=== PATIENT | female | born 1980 | race Caucasian/White ===

== ENCOUNTER 2018-05-14 07:41 | Emergency (ER) | payer BC, SELFPAY ==
[2018-05-14 07:42] VITALS: BP 126/64; PULSE 91; RESP 14; TEMP 37.6; O2SAT 100; BMI 23.5
--- NOTE | 2018-05-14 07:55 | EKG12_ITS ---
Test Reason : ILLNESS Blood Pressure : / mmHG Vent. Rate : 093 BPM Atrial Rate : 093 BPM P-R Int : 138 ms QRS Dur : 086 ms QT Int : 382 ms P-R-T Axes : 050 059 034 degrees QTc Int : 474 ms Normal sinus rhythm Normal ECG Confirmed by CHARITY RUIZ, ZACKARY ([id number]), editor continuity and script WES DUMONT ([id number]) on 05/19/2018 2:45:32 PM Referred By: BRYCE Confirmed By:ZACKARY ANSH MD
[2018-05-14] MEDS: 0.9% Normal Saline 1,000 ML 1000 ML IV (08:04)
[2018-05-14 08:13] LABS: Anion Gap 9 (5-15); BUN 12 mg/dL (7-18); Calcium,Total 8.8 mg/dL (8.5-10.1); Chloride 106 mmol/L (98-107); EST Glomerular Filtration Rate 85 mL/min (>60); Est Glom Filt Rate - Afr Amer 103 mL/min (>60); Estimated Creatinine Clearance 91.81 ml/min; Glucose 103 mg/dL (74-106); Potassium 3.8 mmol/L (3.5-5.1); Sodium Level 141 mmol/L (136-145)
[2018-05-14 08:27] LABS: Absolute Lymphocyte Count 0.82 X10^3/ul (0.83-4.51); Absolute Neutrophil Count 6.7 X10^3/uL (2.0-7.7); Basophil# 0.02 X10^3/uL; Basophil% 0.2 % (0-1); Eosinophil# 0.01 X10^3/uL; Eosinophils% 0.1 % (0-5); Hematocrit 36.1 % (37-47); Hemoglobin 12.1 g/dl (12.0-15.0); Lymphocyte # 0.82 X10^3/ul (4.0); Lymphocyte % 10.1 % (19-41); Mean Corp Hgb Conc 33.5 g/gl (32-36); Mean Corpuscular Hgb 32.4 pg (27.0-32.0); Mean Corpuscular Volume 96.8 fL (81-99); Mean Platelet Vol. 10.6 fl (6.2-12.0); Monocyte# 0.56 X10^3/uL; Monocyte% 6.9 % (0-10); Neutrophil # 6.68 X10^3/uL (2.7-7.7); Neutrophil % 82.6 % (47-70); Platelet Count 265 K/mm3 (150-450); RBC Distribution Width CV 12.8 % (11.6-14.6); RBC Distribution Width SD 45.2 fl (35.1-43.9); Red Blood Count 3.73 M/mm3 (4.2-5.4); White Blood Count 8.1 K/mm3 (4.4-11.0)
[2018-05-14 08:39] LABS: POSITIVE COUNT NO; POSITIVE DIFFERENTIAL NO; POSITIVE MORPHOLOGY NO
[2018-05-14 08:40] LABS: Pregnancy, Serum, hCG Quali. NEGATIVE Negative (0-9 Nonpreg)
[2018-05-14 08:59] LABS: Mucous, Urine 0 SEEN /hpf (<or=2+); White Blood Cells 0 SEEN /hpf (0-5)
[2018-05-14 09:02] LABS: Color, Urine Yellow (Yellow); Glucose, Dipstick Normal (Normal); Ketone-Dipstick 15 mg/dl (Negative); Leukocyte Esterase-Dipstick Negative /ul (Negative); Nitrite-Dipstick Negative (Negative); Occult Blood-Urine 10 /ul (Negative); Protein-Dipstick Negative (Negative); Urine Bilirubin Dipstick Negative (Negative); Urine Clarity Sl. Cloudy (Clear); Urine Urobilinogen Normal (Normal)
[2018-05-14 09:09] LABS: Bacteria 1+ /hpf (None Seen); Red Blood Cells-Urine 0-5 SEEN /hpf (0-5); Squamous Epithelial Cells - UA 0-5 SEEN /hpf (5-10)
--- NOTE | 2018-05-14 09:14 | ED.VISSUMM ---
- ER Visit Summary Date of Service: 05/14/18 Chief Complaint: [Syncope] History of Present Illness: The patient is a 38 F [presents to the emergency department with syncopal episodes this morning. Patient states that she started not feeling well last evening before going to bed thought she might be coming down with the flu. Patient developed a little bit of a cough and sore throat as well as some body aches. Patient had a fever last night. This morning patient woke up and she felt sweaty and dizzy so she went downstairs to get some medicine and she passed out in the hallway on the linoleum floor. Patient states that she had another episode of syncope in the bathroom. At one point her fingers got stiff and she felt like she had a hard time flexing them. Patient denies any neck pain. She denies any chest pain or abdominal pain. Patient has irregular menstrual periods does not believe she is . She has not had history of syncope in the past and has no real medical history.] Physical Examination: [HEENT-PERRLA, EOMI. Cranial nerves II through XII grossly intact. TMs clear. Mucous membranes moist. No adenopathy. She has superficial abrasion to her chin and small amount of dried blood in the left nasal vault. No bony tenderness over the nasal bone or deformity noted. Cardiovascular-regular rate and rhythm without murmur or ectopy Lungs-clear to auscultation, chest wall stable without crepitus or subcu emphysema Abdomen-normoactive bowel sounds, soft, nontender, no rebound or rigidity, no peritoneal signs. Neuro crku-nebcke-kwiu and heel trujillo testing within normal limits, negative Romberg, negative pronator drift, fundi benign Extremities-intact ?4, normal range of motion, normal pulses, atraumatic] Test Results: [EKG obtained on arrival shows sinus rhythm with ventricular rate of 93 bpm with no acute ST segment changes. CBC with differential showed a white count of 8.1, hemoglobin 12, hematocrit 36, platelets 265. Chemistries were normal. HCG was negative. Urinalysis was normal. Influenza screen was negative. Orthostatic vital signs were negative.] Emergency Department Course and Treatment: [Patient received a liter normal same fluid bolus.] Treatment Plan: [Patient to push fluids and follow-up with primary care physician 3-5 days] Disposition: [Discharged home in stable condition] Impression: [Syncope-suspect vasovagal] This note was generated with [employer] dictation software. It may contain incorrect words, spelling, and punctuation that were not noted in review of the chart prior to signing ED Disposition - Plan for ED Patient: Chief Complaint: Syncope Referrals: Tamiko Leonard PA [Primary Care Provider] -
--- NOTE | 2018-05-14 09:17 | ED.DCSUM_ITS ---
- ER Visit Summary Date of Service: 05/14/18 Chief Complaint: [Syncope] History of Present Illness: The patient is a 38 F [presents to the emergency department with syncopal episodes this morning. Patient states that she started not feeling well last evening before going to bed thought she might be coming down with the flu. Patient developed a little bit of a cough and sore throat as well as some body aches. Patient had a fever last night. This morning patient woke up and she felt sweaty and dizzy so she went downstairs to get some medicine and she passed out in the hallway on the linoleum floor. Patient states that she had another episode of syncope in the bathroom. At one point her fingers got stiff and she felt like she had a hard time flexing them. Patient denies any neck pain. She denies any chest pain or abdominal pain. Patient has irregular menstrual periods does not believe she is . She has not had history of syncope in the past and has no real medical history.] Physical Examination: [HEENT-PERRLA, EOMI. Cranial nerves II through XII grossly intact. TMs clear. Mucous membranes moist. No adenopathy. She has superficial abrasion to her chin and small amount of dried blood in the left nasal vault. No bony tenderness over the nasal bone or deformity noted. Cardiovascular-regular rate and rhythm without murmur or ectopy Lungs-clear to auscultation, chest wall stable without crepitus or subcu emphysema Abdomen-normoactive bowel sounds, soft, nontender, no rebound or rigidity, no peritoneal signs. Neuro xonv-zktotx-rbyz and heel trujillo testing within normal limits, negative Romberg, negative pronator drift, fundi benign Extremities-intact ?4, normal range of motion, normal pulses, atraumatic] Test Results: [EKG obtained on arrival shows sinus rhythm with ventricular rate of 93 bpm with no acute ST segment changes. CBC with differential showed a white count of 8.1, hemoglobin 12, hematocrit 36, platelets 265. Chemistries were normal. HCG was negative. Urinalysis was normal. Influenza screen was ne gative. Orthostatic vital signs were negative.] Emergency Department Course and Treatment: [Patient received a liter normal same fluid bolus.] Treatment Plan: [Patient to push fluids and follow-up with primary care physician 3-5 days] Disposition: [Discharged home in stable condition] Impression: [Syncope-suspect vasovagal] This note was generated with [employer] dictation software. It may contain incorrect words, spelling, and punctuation that were not noted in review of the chart prio r to signing ED Disposition - Plan for ED Patient: Chief Complaint: Syncope Referrals: Tamiko Leonard PA [Primary Care Provider] -
--- NOTE | 2018-05-14 09:17 | ED.DEP ---
ED Disposition - Plan for ED Patient: Chief Complaint: Syncope Instructions: ED Syncope Vasovagal, ED Contusion Face Referrals: Tamiko Leonard PA [Primary Care Provider] - 3-5 Days
[2018-05-14 09:18] VITALS: BP 109/55; BP 119/62; BP 119/64; PULSE 92; PULSE 93; PULSE 97
[2018-05-14] MEDS: Diphth,Pertuss(Acell),Tet Vac 0.5 ML Vial IM (09:26)
== END 2018-05-14 09:33 | disposition home or self-care (01) ==
LOC: ED 08:40
PROVIDERS: Emergency Provider Emergency Medicine; Family Provider Physician Assistant; PCP Physician Assistant
DX: R55 Syncope and collapse (principal); J06.9 Acute upper respiratory infection, unspecified; S00.83XA Contusion of other part of head, initial encounter; W18.30XA Fall on same level, unspecified, initial encounter; Y93.9 Activity, unspecified; Y92.008 Other place in unspecified non-institutional (private) residence as the place of occurrence of the external cause; Y99.9 Unspecified external cause status
CPT/HCPCS: 80048; 81001; 84703; 85025; 87804; 90471; 90715; 93005; 96360; 99285; A4216

== ENCOUNTER 2024-11-28 08:51 | Emergency (ER) | payer OTHER, SELFPAY ==
[2024-11-28 08:52] VITALS: BP 132/80; PULSE 79; RESP 16; TEMP 36.6; O2SAT 100; BMI 30.3
--- NOTE | 2024-11-28 09:29 | EDS_ITS ---
HPI HPI - GI History of Present Illness Chief Complaint: Nausea/Vomiting/Diarrhea Informant: patient Nausea/Vomiting/Emesis GI Symptom: Positive for Nausea and Vomiting Onset: Days Severity: Mild Diarrhea/Melena/Hematochezia GI Symptom: Positive for Diarrhea Onset: Days Stool Quality: Positive for Loose Severity: Mild Associated Symptoms Associated Symptoms: Negative for Dysuria, Frequency, Hematuria or Urgency Narrative Narrative: 44-year-old female past medical history of ADHD, anxiety and migraines. They were showing animals at a local fair. On night she had nausea, vomiting diarrhea fever around 100. Denies any abdominal pain. Just that she feels rundown and is concerned she may be dehydrated. Denies any dysuria. Prior similar symptoms: Yes Recent Illness/Hospitalization: No PFSH PFSH Medical History Migraines Anxiety ADHD Medical History no medical history no medical history Home Medications ?Medication ?Instructions ?Recorded ?Last Taken ?Type dextroamphetamine-amphetamine 5 mg PO 11/28/24 Unknown History tablet sertraline 100 mg tablet 100 mg PO DAILY 11/28/24 Unk nown History sumatriptan succinate 100 mg tablet mg PO 11/28/24 Unk nown History Allergy/AdvReac Type Severity Reaction Status Date / Time No Known Allergies Allergy Verified 11/28/24 08:52 Family History no significant family his Surgical History no surgical history Social History Smoking Status: Never smoker ROS ROS ED ROS Narrative Nausea, vomiting, diarrhea and low-grade fever resolved. Constitutional Constitutional ED: Reports fever(s) ENT ENT ED: Denies ear pain Cardiovascular Cardiovascular: Denies chest pain Respiratory/Chest Respiratory/Chest: Denies cough Gastrointestinal Gastrointestinal: Reports diarrhea, nausea and vomiting; Denies abdominal pain, constipation or melena Genitourinary Genitourinary ED: Denies dysuria or hematuria Musculoskeletal Musculoskeletal: Denies arthralgias or back pain Integumentary Denies abscess Neurologic Neurologic: Denies headache(s) Psychiatric Psychiatric: Denies anxiety Endocrine Endocrinology: Denies polydipsia Hematologic/Lymphatic Hematologic/Lymphatic: Denies easy bleeding Allergic/Immunologic Allergic/Immunologic ED: Denies mouth swelling, tongue swelling or urticaria EXAM Physical Exam Narrative Exam Narrative: Well-appearing 44-year-old female. Vital signs are stable and afebrile. No acute distress. at bedside. H EENT exam pupils round react to light. Dry mucous membranes. Neck nontender no lymphadenopathy. Lungs clear to auscultation bilateral. Heart regular rhythm no murmur rate about 80. Chest wall ribs nontender. Abdomen soft, nontender, nondistended, normal bowel sounds without peritoneal signs. Patient is moving all 4 extremities. 5 out of 5 retail associate strength. Dorsi plantarflexion intact. Nontender no edema. Normal range of motion. Back nontender. Neurologically she is awake alert. Answer questions following commands. No focal motor deficits. Benign exam. Possibly mildly dehydrated. Const Vital Signs: 11/28/24 08:52 11/28/24 10:52 Temperature 98 F Temperature Source Temporal Pulse Rate 79 69 Respiratory Rate 16 15 Blood Pressure 132/80 H 122/63 H Blood Pressure Mean 97 82 Pulse Ox 100 100 Oxygen Delivery Method Room Air Room Air Positive well nourished and well developed; Negative for cachectic, contractures or unkempt General Appearance ED: well developed and NAD; Negative for unkempt, cachectic, contractures or pallor Nutritional Appearance: Negative for cachectic HEENT Reports dry mucous membranes; Denies moist mucous membranes normocephalic and atraumatic Mouth ED: Yes dry mucous membranes Mouth: dry mucous membranes Eyes PERRL and EOMs intact bilaterally Neck no lymphadenopathy, supple and no JVD Resp normal respiratory effort and clear to auscultation bilaterally Cardio regular rate, regular rhythm, S1 normal heart sound, S2 normal heart sound and no murmurs GI non-tender, non-distended and no masses Auscultation: normoactive bowel sounds Palpation: soft; Negative for tender, guarding, mass or rebound tenderness present Back/Spine no CVA tenderness General Back: Negative for CVA tenderness Cervical Spine: Negative for cervical spine tenderness Thoracic Spine / Upper Back: Negative for thoracic spinal tenderness Lumbar Spine / Lower Back: Negative for lumbar spinal tenderness Extremity full ROM General Extremety ED: Negative for edema or tenderness General Extremity: Negative for edema Neuro CN's II-XII intact bilaterally and moves all extremities Sensorium / Orientation: alert, oriented to person, oriented to place and oriented to time; Negative for orientation impaired Motor Exam: strength 5/5 throughout Psych mental status grossly normal and thought process normal Appearance: Negative for unkempt Skin no wounds General Skin Exam: Negative for jaundice or pallor Lesions: no lesions Rashes: no rashes Trauma: Negative for abrasion Nails: Negative for discolored MDM MDM MDM Narrative Medical decision making narrative: 44-year-old female suspect a viral gastroenteritis which is resolving. She will be treated with IV fluids screening labs to be obtained. I do think she is mildly dehydrated. She has no abdominal pain on exam I do not think she needs a CAT scan or imaging. Currently she is not nauseated will not be given any Zofran. Repeat exam at 1134 patient is doing well. Held down p.o. fluids. Received almost a liter of IV fluids. Repeat abdominal exam is benign and nontender. She and her are comfortable being discharged to home. She did not want any Zofran for home. Lab Data Attestation: I reviewed the patient's lab results. Lab results narrative: CBC showed a white count of 6. H&H 14 and 40. Platelets 259 Electrolytes show a sodium 136 gap 13. Normal BUN and creatinine. Glucose 98. Liver enzymes normal. Labs: Laboratory Results - last 24 hr 11/28/24 08:59 WBC 6.6 RBC 4.37 Hgb 14.2 Hct 40.6 MCV 92.9 MCH 32.5 H MCHC 35.0 RDW Std Deviation 43.4 RDW Coeff of Mele 12.7 Plt Count 259 MPV 9.9 Immature Gran % (Auto) 0.300 Neut % (Auto) 64.9 Lymph % (Auto) 20.8 Lane % (Auto) 13.1 H Eos % (Auto) 0.3 Baso % (Auto) 0.6 Absolute Neuts (auto) 4.3 Absolute Lymphs (auto) 1.37 Nucleated RBC % 0 Sodium 136 Potassium 3.3 Chloride 100 Carbon Dioxide 23.5 Anion Gap 13 BUN 4 Creatinine 0.80 Estim Creat Clear Calc 97.70 Est GFR (MDRD) Non-Af 93 BUN/Creatinine Ratio 5.5 L Glucose 98 Calcium 9.6 Total Bilirubin 0.49 AST 29 ALT 26 Alkaline Phosphatase 93 Total Protein 7.5 Albumin 4.1 Globulin 3.3 Albumin/Globulin Ratio 1.2 Discharge Plan Triage Chief Complaint: Nausea/Vomiting/Diarrhea ED Provider: Gavin Mendez Dx/Rx/DC Orders Clinical Impression: Viral gastroenteritis, Vomiting and diarrhea Instructions: ED Gastroenteritis, Viral (Adult) Prescriptions: No Action sumatriptan succinate 100 mg tablet PO sertraline 100 mg tablet 100 mg PO DAILY dextroamphetamine-amphetamine 5 mg tablet PO Primary Care Provider: Tamiko Leonard Referrals: Tamiko Leonard, CLAU [Primary Care Provider] - 3-5 Days if not improving Activity Restrictions/Additional Instructions: Plenty of fluids and rest. Slowly increase your diet as tolerated. Plenty of water, 7-Up and Gatorade. Follow-up your primary care physician if not improving or return emerged part if feeling a lot worse. Your labs today looked excellent. Print Language: Turkish Disposition Disposition: Home, Self Care
[2024-11-28] MEDS: 0.9% Normal Saline (1000mL) 1,000 ML 1000 ML IV (09:33)
[2024-11-28 09:37] LABS: Hematocrit 40.6 % (37-47); Hemoglobin 14.2 g/dL (12.0-15.0); Immature Granulocytes Count 0.020 X10^3/uL (0.0-0.0); Mean Corp Hgb Conc 35.0 g/dL (32-36); Mean Corpuscular Volume 92.9 fL (81-99); Mean Platelet Vol. 9.9 fl (6.2-12.0); NRBC Flagged by Analyzer 0 % (0-5); Platelet Count 259 K/mm3 (150-450); RBC Distribution Width CV 12.7 % (11.6-14.6); RBC Distribution Width SD 43.4 fl (35.1-43.9); Red Blood Count 4.37 M/mm3 (4.2-5.4); White Blood Count 6.6 K/mm3 (4.4-11.0)
--- OUTSIDE RECORDS SUMMARY | 2024-11-28 09:59 | XMS RPT_ITS | CCD ---
Author Organization [facility] Inform ion Partnership [facility] Care Team Providers Care Contracting Manager Name Role Phone GWENDOLYN GANNON Referring Unavailable GWENDOLYN GANNON Attending Unavailable YARITZA ARAMBULA (CLAU) Referring Unavailable Tamiko Leonard Primary Care Provider Tamiko Leonard PA-C Unavailable Tamiko Leonard PA-C Unavailable [phone] Tricia Cedeño MD Unavailable Harini Givens LPN Unavailable Connie Carolina PA-C Unavailable Iwona Gray MA Unavailable Unavailable Juan Stout MD Unavailable Michell Messer PA-C Unavailable Senait German LPN Unavailable Unavailable King ELISABETHC, Jorge Luis Davila Unavailable [phone] Maya HICKMAN, Michell Conrad Unavailable Unavaila ble Tricia Tubbs LPN Unavailable Unavailab Deb Brown LPN Unavailable Unavailabl e Jostin KABA, Neris Poole Unavailable Unavaila ble Unavailable Unavailable Denise Ferraro LPN Unavailable Unavailconi ruth Counseling Provider Unavailable Unavailable KIRAN Attending Unavailable Medications Current Medications Medication Drug Class(es) Dates Sig (Normalized) Sig (Original) amphetamine aspartate 1.25 mg / amphetamine sulfate 1.25 mg / dextroamphetamine saccharate 1.25 mg / dextroamphetamine sulfate 1.25 mg oral tablet (8 sources) Central Nervous System Stimulant Start: 11-01-2024 AdderalL 5 mg tablet ; 2 (two) tablet in morning and 1 tablet in the afternoon for 0 days Quantity: 90 {Tablet} Refills: 0 Ordered: 01-Nov-2024 BRADEN Leonard Start: 01-Nov-2024 Comments: [facility] 09/28/2024 Start: 09-29-2024 AdderalL 5 mg tablet ; 2 (two) tablet in morning and 1 tablet in the afternoon for 0 days Quantity: 90 {Tablet} Refills: 0 Ordered: 29-Sep-2024 BRADEN Leonard Start: 29-Sep-2024 Comments: [facility] 09/28/2024 Start: 08-26-2024 AdderalL 5 mg tablet ; 2 (two) tablet in morning and 1 tablet in the afternoon for 0 days Quantity: 90 {Tablet} Refills: 0 Ordered: 26-Aug-2024 BRADEN Leonard Start: 26-Aug-2024 Comments: [facility] 06/04/24 Start: 07-23-2024 AdderalL 5 mg tablet ; 2 (two) tablet in morning and 1 tablet in the afternoon for 0 days Quantity: 90 {Tablet} Refills: 0 Ordered: 23-Jul-2024 BRADEN Leonard Start: 23-Jul-2024 Comments: [facility] 06/04/24Dose increase 07/23/2024 Start: 06-25-2024 AdderalL 5 mg tablet ; 1 (one) tablet BID for 0 days Quantity: 60 {Tablet} Refills: 0 Ordered: 25-Jun-2024 BRADEN Leonard Start: 25-Jun-2024 Comments: [facility] 06/04/24Dose increase 06/25/2024 Start: 06-04-2024 AdderalL 5 mg tablet ; 1 (one) tablet QAM for 0 days Quantity: 30 {Tablet} Refills: 0 Ordered: 04-Jun-2024 BRADEN Leonard Start: 04-Jun-2024 Comments: [facility] 06/04/24 Start: 06-04-2024 AdderalL 5 mg tablet ; 1 (one) tablet QAM for 0 days Quantity: 30 {Tablet} Refills: 0 Ordered: 04-Jun-2024 BRADEN Leonard Start: 04-Jun-2024 Comments: [facility] 06/04/24 Comment on above: [facility] 06/04/24 [facility] 06/04/24Dose in crease 06/25/2024 [facility] 06/04/24Dose in crease 07/23/2024 [facility] 09/28/2024 sertraline 100 mg oral tablet (16 sources) Serotonin Reuptake Inhibitor Start: 10-01-2024 Zoloft 100 mg tablet ; 1 (one) tablet daily for 0 days Quantity: 90 {Tablet} Refills: 3 Ordered: 01-Oct-2024 BRADEN Leonard Start: 01-Oct-2024 Start: 10-24-2023 Zoloft 100 mg tablet ; 1 (one) tablet daily for 0 days Quantity: 90 {Tablet} Refills: 3 Ordered: 24-Oct-2023 BRADEN Leonard Start: 24-Oct-2023 Start: 10-06-2023 Zoloft 100 mg tablet ; 1 (one) tablet daily for 0 days Quantity: 90 {Tablet} Refills: 3 Ordered: 06-Oct-2023 BRADEN Leonard Start: 06-Oct-2023 Start: 08-08-2022 take 1 tablet by goyo th once daily Zoloft 100 MG Oral Tablet ; 1 (one) tablet daily for 0 days Quantity: 90 {Tablet} Refills: 3 Ordered: 08-Aug-2022 BRADEN Leonard Start: 08-Aug-2022 Start: 12-15-2017 take 1 tablet by goyo th once daily sertraline (ZOLOFT) 25 mg tablet Take 1 tablet by mouth once daily. 0 12/15/2017 Active Comment on above: Take 1 tablet by goyo th once daily. SUMAtriptan 100 mg oral tablet (15 sources) Serotonin-1b and Serotonin-1d Receptor Agonist Start: 10-01-2024 Imitrex 100 mg tablet ; 1 (one) Tablet at headache onset; repeat in 2 hours if headache persists for 0 days Quantity: 9 {Tablet} Refills: 11 Ordered: 01-Oct-2024 BRADEN Leonard Start: 01-Oct-2024 Comments: Dose increase 11/05/23 Start: 11-05-2023 Imitrex 100 mg tablet ; 1 (one) Tablet at headache onset; repeat in 2 hours if headache persists for 0 days Quantity: 9 {Tablet} Refills: 11 Ordered: 05-Nov-2023 BRADEN Leonard Start: 05-Nov-2023 Comments: Dose increase 11/05/23 Start: 10-24-2023 Imitrex 50 mg tablet ; 1 (one) Tablet at headache onset; repeat in 2 hours if headache persists for 0 days Quantity: 9 {Tablet} Refills: 11 Ordered: 24-Oct-2023 BRADEN Leonard Start: 24-Oct-2023 Start: 09-26-2023 Imitrex 50 mg tablet ; 1 (one) Tablet at headache onset; repeat in 2 hours if headache persists for 0 days Quantity: 9 {Tablet} Refills: 11 Ordered: 26-Sep-2023 BRADEN Leonard Start: 26-Sep-2023 Comment on above: Dose increase 4 Completed/Discontinued Medications Medication Drug Class(es) Dates Sig (Normalized) Sig (Original) [id number] 200 actuat albuterol 0.09 mg/actuat metered dose inhaler (1 source) beta2-Adrenergic Agonist Start: 05-17-2018 take 2 puff(s) by inhalation every four hours as needed for wheezing albuterol HFA (PROAIR HFA) 90 mcg/actuation inhaler Inhale 2 Puffs as instructed every 4 hours as needed for Wheezing/Shortnes s of Breath. 1 Inhaler 0 05/17/2018 Active Comment on above: Inhale 2 Puffs as in structed every 4 hours as needed for Wheezing/Shortness of Breath. ALPRAZolam 0.5 mg oral tablet (15 sources) Benzodiazepine Start: 10-24-2023 End: 06-04-2024 Xanax 0.5 mg tablet ; 1 (one) Tablet as needed every TID for anxiety for 0 days Quantity: 15 {Tablet} Refills: 0 Ordered: 04-Jun-2024 VICK Trejo Start: 24-Oct-2023 End: 04-Jun-2024 Status: Inactive Comments: Medication taken as needed. [facility] 10/24/23Yifan Sosa Start: 12-25-2022 Xanax 0.5 mg t ablet ; 1 (one) Tablet as needed every TID for anxiety for 0 days Quantity: 15 {Tablet} Refills: 0 Ordered: 25-Dec-2022 BRADEN Leonard Start: 25-Dec-2022 Comments: Medication taken as needed. [facility] 12/25/22[facility] Comment on above: Medication taken as needed. [facility] 12/25/22[facility] Medication taken as needed. [facility] 10/24/23[facility] amoxicillin 875 mg / clavulanate 125 mg oral tablet (20 sources) Penicillin-class Antibacterial Start: 3 End: take 1 tablet by mouth twice daily Amoxicillin-Pot Clavulanate 875-125 MG Oral Tablet ; 1 (one) Tablet two times daily for 10 days Quantity: 20 {Tablet} Refills: 0 Ordered: 17-Sep-2022 BRADEN Carolina Start: 17-Sep-2022 End: 27-Sep-2022 Status: Inactive Start: 06-26-2015 End: 07-06-2015 take 1 tablet by mouth twice daily at mealtime AMOXICILLIN-POT CLAVULANATE, 875-125MG (Oral Tablet) ; 1 (one) Tablet BID for 10 days Quantity: 20 {Tablet} Refills: 0 Ordered: 26-Jun-2015 BRADEN Leonard Start: 26-Jun-2015 End: 06-Jul-2015 Status: Inactive Comments: Take with food Start: 05-04-2013 End: 05-11-2013 take 1 tablet by mouth twice daily AMOXICILLIN-POT CLAVULANATE, 875-125MG (Oral Tablet) ; 1 (one) Tablet two times daily for 7 days Quantity: 14 {Tablet} Refills: 0 Ordered: 04-May-2013 MD Tricia Cedeño Start: 04-May-2013 End: 11-May-2013 Status: Inactive Comment on above: Take with food azithromycin 250 mg oral tablet (15 sources) Macrolide Antimicrobial Start: 03-30-20 13 End: 05-04-19 14 ZITHROMAX Z-ALIE, 250MG (Oral Tablet) ; 2 (two) Tabs day one, then one daily for 4 days for 0 days Quantity: 1 {Z-pack} Refills: 0 Ordered: 04-May-2013 Start: 30-Mar-2013 End: 04-May-2013 Status: Inactive busPIRone hydrochloride 5 mg oral tablet (15 sources) Start: 08-09-19 End: 10-24-19 24 busPIRone 5 mg tablet ; 1 (one) Tablet BID for 0 days Quantity: 180 {Tablet} Refills: 1 Ordered: 24-Oct-2023 SENDY Ferraro Start: 08-Aug-2022 End: 24-Oct-2023 Status: Inactive LORazepam 0.5 mg oral tablet (15 sources) Benzodiazepine Start: 05-27-19 End: 06-27-19 take 0.5-1 tablets by mouth twice daily as needed Ativan 0.5 MG Oral Tablet ; 1/2 to 1 Tablet BID prn for 30 days Quantity: 30 {Tablet} Refills: 0 Ordered: 27-May-2018 BRADEN Leonard Start: 27-May-2018 End: 26-Jun-2018 Status: Inactive Comments: Changing from xanax to lorazepam; [facility] 05/20/18 Comment on above: Changing from xanax to lorazepam; [facility] 05/20/18 MULTIVITAMIN ORAL (1 source) MULTIVITAMIN ORA L Take by mouth. 0 Active Comment on above: Take by mouth. naproxen 500 mg oral tablet (11 sources) Nonsteroidal Anti-inflammatory Drug Start: 12-08-19 End: 06-04-19 25 naproxen 500 mg tablet ; 1 (one) tablet BID prn headache for 0 days Quantity: 60 {Tablet} Refills: 0 Ordered: 04-Jun-2024 VICK Trejo Start: 08-Dec-2023 End: 04-Jun-2024 Status: Inactive Problems Active Problems Problem Classification Problem Date Documented Da te Episodic/Chronic Anxiety disorders (20 sources) Mixed anxiety and depressive disorder; Translations: [Anxiety disorder, unspecified] 12-25-2022 Chronic Attention-deficit, conduct, and disruptive behavior disorders (20 sources) Attention deficit hyperactivity disorder, combined type; Translations: [Attention-deficit hyperactivity disorder, combined type] 06-04-2024 Chronic Chronic obstructive pulmonary disease and bronchiectasis (15 sources) Bronchitis; Translations: [Bronchitis, not specified as acute or chronic] 06-26-2015 Episodic E Codes: Natural/environment (15 sources) Cat bite - wound; Translations: [Bitten by cat, initial encounter] 05-04-2013 Episodic Headache; including migraine (20 sources) Headache; Translations: [Headache] 09-17-2022 Episodic Influenza (15 sources) Influenza due to Influenza B virus; Translations: [Influenza due to other identified influenza virus with other respiratory manifestations] 05-04-2019 Episodic Other screening for suspected conditions (not mental disorders or infectious disease) (20 sources) Patient encounter status; Translations: [Encounter for screening for lipoid disorders] 09-17-2022 Episodic Other upper respiratory infections (20 sources) Sinusitis; Translations: [Chronic sinusitis, unspecified] 09-17-2022 Chronic Other upper respiratory infections (20 sources) Sore throat symptom; Translations: [Acute pharyngitis, unspecified] Episodic Residual codes; unclassified (15 sources) Influenza vaccination declined; Translations: [Immunization not carried out because of patient refusal] 04-26-2016 Episodic Unclassified (15 sources) Number of Pregnancies 01-01-2019 Comment on above: 0. Unclassified (15 sources) Follow up for multiple chronic conditions - The patient is here for follow-up of anxiety and depression. The patient always takes the prescribed medications. No side effects noted. The patient has an active lifestyle but no regular exercise program. The patient states that weight has increased and mood is unchanged (doing well with Zoloft). The patient states that the disease has no overall impact. Note for Multiple chronic conditions follow-up: Pt also needs adoption form filled out.Very rare use of xanax.Has been having headaches more often; usually around her cycle. Excedrin helps some but not as much as it used to. Happens about 3-4 times a month. No vision changes. Occasional nausea with them. Behind 1 or both eyes. Admits to a lot of right sided neck tension as well. 06-15-2020 Unclassified (14 sources) Follow up for chronic condition - The patient is here for follow-up of anxiety and depression. The patient always takes the prescribed medications. No side effects noted. The patient's dietary compliance is fairly good usually adhering to recommendations. The patient states that breathing effort is stable, there is no recent angina or dyspnea, there are no vision changes or weakness, pain is generally stable (none), in general mood has improved and they do not have headaches. Note for Chronic condition follow-up: Last office visit 10/16/2017 01-01-2019 Unclassified (15 sources) [ADDITIONAL REASON] Transition into care - The patient is transitioning into care from an emergency room (05/14/2018) and a summary of care was reviewed. 01-01-2019 Unclassified (14 sources) [ADDITIONAL REASON] Form completion physical - The patient feels well with no complaints, has good energy level and is sleeping well. There are no current symptoms. The patient has an appropriate balanced diet and eats a variety of foods. Safety measures include appropriate use of car seats/safety belts, appropriate use of helmets, appropriate use of safety belts, avoiding exposure to passive smoke and awareness of dangers of passenger-side air bags. There are no behavioral problems. Note for Form completion physical: For adoption 01-01-2019 Unclassified (15 sources) Follow up for multiple chronic conditions - The patient is here for follow-up of anxiety and depression. The patient always takes the prescribed medications. No side effects noted. The patient has an active lifestyle but no regular exercise program. The patient's dietary compliance is good with close adherance to recommendations. The patient states that breathing effort is stable, there is no recent angina or dyspnea, there are no vision changes or weakness, in general mood has improved, sleep patterns have improved and they do not have headaches. Note for Multiple chronic conditions follow-up: No concerns today. Has been doing really well. 10-16-2017 Unclassified (15 sources) Follow up for chronic condition - The patient is here for follow-up of depression (anxiety). The patient always takes the prescribed medications. No side effects noted. The patient has an active lifestyle but no regular exercise program. The patient's dietary compliance is fairly good usually adhering to recommendations. The patient states that breathing effort is stable, there is no recent angina or dyspnea, there are no vision changes or weakness, in general mood has improved (states she has been good until this week - had a little set back with her child being all sick and her worrying about that; took 2 xanax this week which did help (hadn't needed to take).) and they do not have headaches. Note for Chronic condition follow-up: Weight is stable. 10-18-2016 Unclassified (14 sources) Follow up for chronic condition - The patient is here for follow-up of depression (anxiety). The patient always takes the prescribed medications. No side effects noted (just got started back on zoloft about 3 weeks ago; went to the ER on 09/10/16 due to diarrhea and panic attack - labs were normal (including fecal occult) and she was given IV ativan which did help; no panic attack since then -- didn't feel like the xanax really helped much when she had one). The patient states that breathing effort is stable, there is no recent angina or dyspnea, there are no vision changes or weakness, mood is unchanged (Has started to notice some improvement in her mood but not much.) and they do not have headaches. Note for Chronic condition follow-up: Diarrhea is better. Still doesn't have appetite back.[place] like with the rainy weather and her daughter being sick and then her being sick that it just made anxiety bad.No suicidal or homicidal thoughts. 09-13-2016 Unclassified (14 sources) [ADDITIONAL REASON] Transition into care - The patient is transitioning into care from an emergency room (IV ativan) and a summary of care was reviewed. 09-13-2016 Unclassified (15 sources) [facility] Routine Follow up - The patient is here for follow-up of depression (Last rtn visit 04/26/16. No recent labs.) and anxiety. The patient always takes the prescribed medications. No side effects noted. The patient has an active lifestyle but no regular program. The patient's out of office blood pressure checks occur rarely and dietary compliance is fairly good usually adhering to recommendations. The patient states that breathing effort is stable, there is no recent angina or dyspnea, there are no vision changes or weakness, weight has increased (12 pounds in the past 6 months), mood is unchanged and they do not have headaches. 06-14-2016 Unclassified (15 sources) Follow up for chronic condition - The patient is here for follow-up of depression (anxiety). The patient always takes the prescribed medications. No side effects noted. The patient has an active lifestyle but no regular exercise program. The patient's dietary compliance is fairly good usually adhering to recommendations. The patient states that breathing effort is stable, there is no recent angina or dyspnea, there are no vision changes or weakness, in general mood has improved (states it has helped a lot and she has not had to use the xanax for 2 weeks; sleeping well and able to enjoy life ) and they do not have headaches. 12-08-2015 Unclassified (1 source) Transition into care - The patient is transitioning into care from an emergency room (IV ativan) and a summary of care was reviewed. 09-13-2016 Unclassified (1 source) [ADDITIONAL REASON] Follow up for chronic condition - The patient is here for follow-up of depression (anxiety). The patient always takes the prescribed medications. No side effects noted (just got started back on zoloft about 3 weeks ago; went to the ER on 09/10/16 due to diarrhea and panic attack - labs were normal (including fecal occult) and she was given IV ativan which did help; no panic attack since then -- didn't feel like the xanax really helped much when she had one). The patient states that breathing effort is stable, there is no recent angina or dyspnea, there are no vision changes or weakness, mood is unchanged (Has started to notice some improvement in her mood but not much.) and they do not have headaches. Note for Chronic condition follow-up: Diarrhea is better. Still doesn't have appetite back.[place] like with the rainy weather and her daughter being sick and then her being sick that it just made anxiety bad.No suicidal or homicidal thoughts. 09-13-2016 Unclassified (13 sources) Follow up for multiple chronic conditions - The patient is here for follow-up of anxiety and depression. The patient always takes the prescribed medications. No side effects noted. The patient has an active lifestyle but no regular exercise program. The patient's dietary compliance is good with close adherance to recommendations. The patient states that there is no recent angina or dyspnea and headaches are noted often but not on daily basis. The patient states that the disease has no overall impact. Note for Multiple chronic conditions follow-up: Patient states no concerns or complaints at this time. 10-24-2023 Unclassified (1 source) Form completion physical - The patient feels well with no complaints, has good energy level and is sleeping well. There are no current symptoms. The patient has an appropriate balanced diet and eats a variety of foods. Safety measures include appropriate use of car seats/safety belts, appropriate use of helmets, appropriate use of safety belts, avoiding exposure to passive smoke and awareness of dangers of passenger-side air bags. There are no behavioral problems. Note for Form completion physical: For adoption 01-01-2019 Unclassified (1 source) [ADDITIONAL REASON] Follow up for chronic condition - The patient is here for follow-up of anxiety and depression. The patient always takes the prescribed medications. No side effects noted. The patient's dietary compliance is fairly good usually adhering to recommendations. The patient states that breathing effort is stable, there is no recent angina or dyspnea, there are no vision changes or weakness, pain is generally stable (none), in general mood has improved and they do not have headaches. Note for Chronic condition follow-up: Last office visit 10/16/2017 01-01-2019 Unclassified (1 source) ADHD Initial Evaluation - Adult - Symptoms include poor work performance (maybe affects her performance some), short attention span, impulsive behavior, easy distractibility, poor listening, forgetfulness, careless mistakes, losing things, avoiding mental effort tasks, difficulty remaining seated, fidgeting and interrupting others, while symptoms do not include hyperactive behavior or excessive talking. The symptoms occur at home and at work. Onset was 6 month(s) ago. The symptoms are described as unchanged (not getting worse but patient feels she is more aware of her symptoms that may be ADHD). Symptoms are exacerbated by group meetings (being in public settings). Pertinent family history does not include attention deficit hyperactivity disorder. Note for ADHD initial evaluation: Would like to discuss today if she possibly has ADHD. Patient has noticed when she wakes up, that she has a fight and flight feeling. I feel like I can run for miles, takes me awhile to calm down. 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 06-04-2024 Unclassified (8 sources) ADHD Initial Evaluation - Adult - Symptoms include poor work performance (maybe affects her performance some), short attention span, impulsive behavior, easy distractibility, poor listening, forgetfulness, careless mistakes, losing things, avoiding mental effort tasks, difficulty remaining seated, fidgeting and interrupting others, while symptoms do not include hyperactive behavior or excessive talking. The symptoms occur at home and at work. Onset was 6 month(s) ago. The symptoms are described as unchanged (not getting worse but patient feels she is more aware of her symptoms that may be ADHD). Symptoms are exacerbated by group meetings (being in public settings). Pertinent family history does not include attention deficit hyperactivity disorder. Note for ADHD initial evaluation: Would like to discuss today if she possibly has ADHD. Patient has noticed when she wakes up, that she has a fight and flight feeling. I feel like I can run for miles, takes me awhile to calm down. 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 06-04-2024 Unclassified (6 sources) Follow up for multiple chronic conditions - The patient is here for follow-up of anxiety, depression and other condition(s) (ADHD). The patient always takes the prescribed medications. No side effects noted. The patient has an active lifestyle but no regular exercise program. The patient's dietary compliance is good with close adherance to recommendations. The patient states that there is no recent angina or dyspnea, weight has decreased and they do not have headaches. The patient states that the disease has no overall impact. Note for Multiple chronic conditions follow-up: Patient states the Adderall has improved day to day life, feels it is a good fit as it makes her feel much better. Patient states no concerns with medication at this time. 06-25-2024 Unclassified (2 sources) Follow up for multiple chronic conditions - The patient is here for follow-up of anxiety, depression and other condition(s) (ADHD, headaches). The patient always takes the prescribed medications. No side effects noted. The patient has an active lifestyle but no regular exercise program. The patient's dietary compliance is fairly good usually adhering to recommendations. The patient states that there is no recent angina or dyspnea, weight has decreased (9 lbs) and they do not have headaches. The patient states that the disease has no overall impact. Note for Multiple chronic conditions follow-up: Patient states doing well overall, no concerns voiced at his time. States medications continue to work well.Still having migraines but feels like she is identifying her triggers and working to avoid those. Max is 6/month and imitrex is effective. 10-01-2024 Past or Other Problems Problem Classification Problem Date Documented Date Episodic/Chronic Other non-traumatic joint disorders (1 source) Pain in left knee; Translations: [Pain in left knee] Onset: 12-15-2017 Episodic Unclassified (15 sources) Cold Symptoms - Symptoms include nasal congestion, runny nose, ear fullness, scratchy throat, productive cough, fever (100.6F on Friday), chills, general malaise, headache and facial pain, but do not include ear pain, sore throat, dry cough or wheezing. The onset was sudden 1 week(s) ago. The symptoms occur constantly. The patient describes this as moderate in severity and unchanged. Current treatment includes non-prescription cold medication, acetaminophen and home remedies. The patient has been exposed to an individual with a cough, an individual with an upper respiratory infection, an individual with similar symptoms and an individual with strep (daughter). Medical history includes tonsillectomy, but patient denies history of seasonal allergies, recurrent sinusitis, recurrent strep pharyngitis, asthma or recurrent ear infections. Note for Upper respiratory infection: Patient reports a negative strep test at urgent care and a negative COVID test at home. 09-17-2022 Unclassified (15 sources) Form completion physical - The patient feels well with no complaints, has good energy level and is sleeping well. There are no current symptoms. The patient exercises 3 - 4 times per week (walking). The patient has an appropriate balanced diet and takes suppemental vitamins and sleeps on average 8 hours per night. Habits include caffeine use. 08-08-2022 Unclassified (14 sources) Follow up for multiple chronic conditions - The patient is here for follow-up of anxiety and depression. The patient always takes the prescribed medications. No side effects noted. The patient has an active lifestyle but no regular exercise program. The patient states that weight has increased (10lb) and mood is unchanged (is doing well with the Zoloft). The patient states that the disease has no overall impact. Note for Multiple chronic conditions follow-up: Doing well - 2 headaches/month and are controlled with imitrex.Doesn't want to do dose reduction of zoloft.Needs form completed for [facility]. 08-13-2021 Unclassified (14 sources) [ADDITIONAL REASON] Well adult female - The patient feels well with no complaints. 08-13-2021 Unclassified (15 sources) Cold Symptoms - Symptoms include productive cough, fever (friday 101.9 at the highest), chills, general malaise (comes and goes) and headache, but do not include nasal congestion, runny nose, ear pain, scratchy throat or facial pain. The onset was sudden 2 day(s) ago. The symptoms occur constantly. The patient describes this as moderate in severity and worsening. Current treatment includes NSAIDs. Risk factors do not include smoking. The patient has been exposed to an individual with similar symptoms (daughter has similar sx and was told it was viral-), but has not been exposed to an individual with a cough, an individual with an upper respiratory infection, an individual with strep or secondhand smoke. Patient denies history of seasonal allergies, recurrent sinusitis, recurrent strep pharyngitis, asthma, tonsillectomy or recurrent ear infections. Note for Upper respiratory infection: had tylenol at 7 am 05-04-2019 Unclassified (15 sources) Form completion physical - The patient feels well with no complaints, has good energy level and is sleeping poorly (within the past year has not been sleeping as well. Trouble with falling asleep. Dentist told patient that she may have sleep apnea. ). There are no current symptoms. The patient exercises none (nothing planned but is active). The patient has an appropriate balanced diet and takes suppemental vitamins (multivitamin) and sleeps on average 7 hours per night. Safety measures include avoiding exposure to passive smoke. Note for Form completion physical: Is here today to have a form completed for adoption/fostering. No complaints or concerns needing discussed today. 04-26-2016 Unclassified (15 sources) Depression (Initial) - The onset of the depression has been gradual (started about 2 weeks ago following the of baby they are adopting; she is healthy but had to go through detox following births; also had toddler; feels that symptoms have been present x months but worsened recently) and has been occurring in a persistent pattern for weeks. The course has been increasing. The depression is described as feeling nervous and tired. The symptoms include depressed mood, trouble concentrating, indecisiveness, loss of appetite, weight loss (weight is down 6 pounds since June), insomnia, headaches (just one) and anxiety (has anxiety with basic things - wondering what will feed her toddler, etc; has lots of help and support with both children; has had 2-3 panic attacks over the past 2 weeks), while the symptoms do not include suicidal thoughts or suicidal attempts. The symptoms have been associated with episodes of spontaneous crying and lack of energy, while the symptoms have not been associated with alcoholism or drug abuse. The depression was preceded by anxiety (has history of anxiety but it has gotten worse). There is family history of psychiatric illness (sister) and depression in first degree relative (sister), while there is no family history of suicide or chemical dependency. 11-07-2015 Unclassified (15 sources) Cold Symptoms - Symptoms include runny nose, sore throat (started initially with this but now only has in the mornings), dry cough, chills and facial pain (pressure), but do not include nasal congestion, ear pain, fever, general malaise or headache. The onset was gradual 9 day(s) ago. The symptoms occur constantly. The patient describes this as moderate in severity and unchanged. Current treatment includes non-prescription cold medication (advil cold and sinus). The patient has not been exposed to an individual with similar symptoms. Medical history includes recurrent sinusitis, but patient denies history of seasonal allergies, recurrent strep pharyngitis, asthma, tonsillectomy or recurrent ear infections. 06-26-2015 Unclassified (15 sources) Cold Symptoms - Symptoms include sneezing, nasal congestion, runny nose, sore throat, hoarseness, fever (low grade), chills, general malaise, headache and facial pain, but do not include ear pain, ear fullness, dry cough or productive cough. The onset was sudden 9 day(s) ago. The symptoms occur constantly. The patient describes this as moderate in severity and unchanged. Note for Upper respiratory infection: Had a 5 day Zpack at home. Will take last dose today. 08-16-2014 Unclassified (15 sources) Form completion physical - The patient feels well with no complaints, has good energy level and is sleeping well. There are no current symptoms. The patient exercises none (active). The patient has an appropriate balanced diet and takes suppemental vitamins (sometimes) and sleeps on average 8 hours per night. Safety measures include appropriate use of safety belts. There are no behavioral problems. Note for Form completion physical: LMP was 2 months ago - periods have always been irregular. Need form completed to complete adoption process. 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 The person holding the cat's head let go and the cat bit this patient. She has open wound on right index finger and left hand. The cat was a healthy cat that was up to date on vaccines. Is here for evaluation and for antibiotic per vet. Thinks she had a tetanus shot 3-4 years ago at the [facility] in [place] 05-04-2013 Unclassified (15 sources) Cold Symptoms - Symptoms include nasal congestion, runny nose, purulent discharge, sore throat (sx began with a sore throat), productive cough and headache, but do not include sneezing, ear pain, fever or general malaise. The onset was gradual 10 day(s) ago. The symptoms occur constantly. The patient describes this as moderate in severity and worsening. Current treatment includes non-prescription cold medication (tylenol cold and sinus, mucinex, nyquil). Risk factors do not include smoking. The patient has been exposed to an individual with an upper respiratory infection. Patient denies history of seasonal allergies, recurrent sinusitis, recurrent strep pharyngitis, asthma, tonsillectomy or recurrent ear infections. 03-30-2013 Unclassified (15 sources) Form completion physical - The patient feels well with no complaints, has good energy level and is sleeping well. There are no current symptoms. The patient exercises daily. The patient has an appropriate balanced diet and takes no supplemental vitamins or iron and sleeps on average 7 hours per night. Habits include caffeine use. Safety measures include appropriate use of safety belts. There are no behavioral problems. Note for Form completion physical: Pt needs a form completed for the last step of the adoption process. 11-19-2012 Unclassified (1 source) Well adult female - The patient feels well with no complaints. 08-13-2021 Unclassified (1 source) [ADDITIONAL REASON] Follow up for multiple chronic conditions - The patient is here for follow-up of anxiety and depression. The patient always takes the prescribed medications. No side effects noted. The patient has an active lifestyle but no regular exercise program. The patient states that weight has increased (10lb) and mood is unchanged (is doing well with the Zoloft). The patient states that the disease has no overall impact. Note for Multiple chronic conditions follow-up: Doing well - 2 headaches/month and are controlled with imitrex.Doesn't want to do dose reduction of zoloft.Needs form completed for [facility]. 08-13-2021 Results Test Name Value Interpretation Reference Range Facility STREP A MOLECULAR (POC)on Procedural Control [facility] Strep A (POCT) Negative Negative [facility] - Microbiology an d Antimicrobial susceptibilityon 05-04-2019 FLUAV Ag IA Ql (Throat) Positive Abnormal [employer]. FLUAV Ag IA Ql (Throat) Negative Normal [employer], [employer]. CNOVon 05-17-2018 CNOV Office Visit ([facility] ) MADELINEYOSELINA ([id number]) 1980 F Date Time Provider Department 05/17/18 12:15 PM YARITZA ARAMBULA) [facility] During your visit today, we recorded the following information about you: Temperature Pulse Respiration Blood pressure 97.2 degrees 71/minute 16/minute 122/82 Weight 70.9 kg Yaritza Arambula PA-C 05/17/2018 2:31 PM Signed Subjective HPI HPI Tricia Madeline is a 38 year old female who presents today for CC of fevers and URI (Tmax 102 -Friday) a couple days. I just don't feel good. States that she thought she felt like she had the flu but testing was negative in ER. C/o cough and generally fatigued x 5 days. Bringing up some sputum with the cough (clearish/greenish). Had body aches initially. Notes that she passed out and landed faceforward on morning. Was by herself when she passed out; She called the squad and was taken to the ER. They did a workup including labs, EKG, urine, flu testing, and gave her IV fluids- all testing was normal. Has not seen her PCP since. Has had persisting off balance sensation- just brought on by movement or positional changes. Had taken cold/flu medication the night prior to passing out, and took it again today. .BP 122/82 Pulse 71 Temp 36.2 ?C (97.2 ?F) (Left Tympanic) Resp 16 Wt 70.9 kg (156 lb 3.2 oz) SpO2 99% BMI 24.46 kg/m? ALLERGIES No Known Allergies There is no problem list on file for this patient. No family history on file. Social History Marital status: Spouse name: Years of education: Number of children: Social History Main Topics Smoking status: Never Smoker Smokeless tobacco: Never Used Alcohol use: No Drug use: No Review of Systems Constitutional: Positive for chills, fever and malaise/fatigue (No longer, but did initially ). HENT: Negative for congestion, ear pain, sinus pain and sore throat. Respiratory: Positive for cough, sputum production and wheezing (Notes that she hears some odd sounds when she breathes out). Negative for shortness of breath. Cardiovascular: Negative for chest pain. Gastrointestinal: Negative for nausea. Neurological: Positive for dizziness (Off balance w/ positional changes- see HPI) and loss of consciousness (On - see above). Negative for tingling, tremors, sensory change, speech change, focal weakness and headaches. Objective Physical Exam Constitutional: She is oriented to person, place, and time and well-developed, well-nourished, and in no distress. Vital signs are normal. HENT: Head: Normocephalic. Right Ear: Tympanic membrane, external ear and ear canal normal. No drainage. Tympanic membrane is not perforated, not erythematous, not retracted and not bulging. No middle ear effusion. Left Ear: Ear canal normal. No drainage. Tympanic membrane is not perforated, not erythematous, not retracted and not bulging. No middle ear effusion. Nose: No rhinorrhea. Right sinus exhibits no maxillary sinus tenderness and no frontal sinus tenderness. Left sinus exhibits no maxillary sinus tenderness and no frontal sinus tenderness. Mouth/Throat: Uvula is midline and mucous membranes are normal. No oropharyngeal exudate, posterior oropharyngeal edema, posterior oropharyngeal erythema or tonsillar abscesses. Eyes: Conjunctivae and lids are normal. Cardiovascular: Normal rate, regular rhythm, S1 normal and S2 normal. Exam reveals no friction rub. Pulmonary/Chest: Effort normal. She has wheezes (Wheezing in L lower lobe on expiration). She has no rhonchi. She has no rales. Lymphadenopathy: Head (right side): No submental, no submandibular, no tonsillar, no preauricular, no posterior auricular and no occipital adenopathy present. Head (left side): No submental, no submandibular, no tonsillar, no preauricular, no posterior auricular and no occipital adenopathy present. Right cervical: No superficial cervical and no posterior cervical adenopathy present. Left cervical: No superficial cervical and no posterior cervical adenopathy present. Neurological: She is alert and oriented to person, place, and time. She has normal sensation, normal strength and intact cranial nerves. She displays no weakness and facial symmetry. She exhibits normal muscle tone. Gait normal. Coordination normal. ASSESSMENT/PLAN: 1. Viral URI with cough - ICD9: 465.9, ICD10: J06.9, B97.89 (primary diagnosis) - Discussed viral etiology and rationale for treatment. - Rapid strep negative in office today - Symptomatic treatment with prn analgesia - Supportive care with fluids and rest; Rx for cheratussin, as patient is having many issues falling asleep at night- thoroughly discussed indications, potential adverse effects, and risks associated with codeine use- warned to use as infrequently as possible and to avoid driving/operating heavy machinery etc, while taking- only use prior to bed- pt expressed understanding - Follow up in 3-5 days if symptoms persist or sooner if worsening of symptoms - CODEINE 10 MG-GUAIFENESIN 100 MG/5 ML ORAL LIQUID 2. Brief loss of consciousness - ICD9: 780.09, ICD10: R55 Could have been vasovagal secondary to sickness +/- other stressors. Workup negative in ED on . CXR negative today; Recommend more thorough evaluation by PCP to r/o other etiology - XR CHEST 2V FRONTAL/LAT 3. Fever, unspecified fever cause - ICD9: 780.60, ICD10: R50.9 Rapid strep negative; Suspect viral - RAPID STREP TEST B/O - XR CHEST 2V FRONTAL/LAT 4. Abnormal lung sounds - ICD9: 786.7, ICD10: R09.89 See above - XR CHEST 2V FRONTAL/LAT 5. BPPV (benign paroxysmal positional vertigo), unspecified laterality - ICD9: 386.11, ICD10: H81.10 Likely secondary to hitting head when she lost consciousness. Etiology and self-limiting course explained in detail, However bc of the LOC recommend further workup by PCP Reviewed red flags with patient and when to seek care sooner. The patient indicates understanding of these issues and agrees with the plan. Yaritza Arambula PA-C Referring Provider: SELF [[id number]] Allergies As of Date: 05/17/2018 (No Known Allergies) Date Reviewed: 05/17/2018 Reviewed by: Gabi Rivers Ma - Fully Assessed Reason for Visit: Cough [28] Cmt: with fever x 4 days Primary Visit Diagnosis:Viral URI with cough [J06.9, B97.89] Other Visit Diagnoses:Brief loss of consciousness [R55] Fever, unspecified fever cause [R50.9] Abnormal lung sounds [R09.89] BPPV (benign paroxysmal positional vertigo), unspecified laterality [H81.10] Order(s):RAPID STREP TEST B/O [[id number]] Order #: [id number] XR CHEST 2V FRONTAL/LAT [[id number]] Order #: [id number]. #:[id number] albuterol HFA (PROAIR HFA) 90 mcg/actuation inhalerInhale 2 Puffs as instructed every 4 hours as needed for Wheezing/Shortness of Breath.Disp: 1 InhalerRfl: 0 codeine-guaiFENesin (CHERATUSSIN AC) 10-100 mg/5 mL syrupTake 10 mL by mouth three times daily as needed for up to 5 days.Disp: 150 mLRfl: 0 Prescriptions as of 05/17/2018 Sig: SERTRALINE 25 MG TABLET Take 1 tablet by mouth once d* MULTIVITAMIN ORAL Take by mouth. ALBUTEROL SULFATE HFA 90 MCG/* Inhale 2 Puffs as instructed * CODEINE 10 MG-GUAIFENESIN 100* Take 10 mL by mouth three katerina* Problem List As Of Date: 05/17/2018 (None) Prescriptions ordered this encounter Disp Refills Start End ALBUTEROL SULFATE HFA 90 MCG/ACTUATI* 1 In* 0 05/17/2018 Class: Print RX Route: INHALATION Sig: Inhale 2 Puffs as instructed every 4 hours as needed for Wheezing/Shortness of Breath. CODEINE 10 MG-GUAIFENESIN 100 MG/5 M* 150 * 0 05/17/2018 05/22/2018 Class: Print RX Route: ORAL Sig: Take 10 mL by mouth three times daily as needed for up to 5 days. Encounter Status:Closed by YARITZA ARAMBULA on 05/17/18 Normal [facility] PROGRESSon 05-17-2018 Protein mass conc HNO ID: [id number] Author: Santo Connelly) Daria Lawrence Service: (none) Author Type: Director Treasurer Type: Progress Notes Filed: 05/17/2018 1:03 PM Note Text: Radiology Service Progress Note PATIENT NAME: Tricia Correa DATE OF SERVICE: May 17, 2018 TIME: 12:56 PM PATIENT IDENTITY VERIFICATION COMPLETED USING TWO (2) METHODS: Patient confirmed name verbally and Date of . PATIENT GENDER DATA: Female. status: : No status: NO. PATIENT RELEVANT IMPLANT DATA REVIEWED: Not Applicable RADIOLOGY DEPARTMENT: General X-ray: Exam(s) Completed: Chest X-Ray PERIPHERAL IV DATA: Not applicable SIGNED BY: RT Boris May 17, 2018 12:56 PM [facility] Protein mass conc HNO ID: [id number] Author: Yaritza Arambula (Pa) Service: (none) Author Type: Physician Agricultural Economics Teacher Type: Progress Notes Filed: 05/17/2018 2:31 PM Note Text: Subjective HPI HPI Tricia Correa is a 38 year old female who presents today for CC of fevers and URI (Tmax 102 -Friday) a couple days. I just don't feel good. States that she thought she felt like she had the flu but testing was negative in ER. C/o cough and generally fatigued x 5 days. Bringing up some sputum with the cough (clearish/greenish). Had body aches initially. Notes that she passed out and landed faceforward on morning. Was by herself when she passed out; She called the squad and was taken to the ER. They did a workup including labs, EKG, urine, flu testing, and gave her IV fluids- all testing was normal. Has not seen her PCP since. Has had persisting off balance sensation- just brought on by movement or positional changes. Had taken cold/flu medication the night prior to passing out, and took it again today. .BP 122/82 Pulse 71 Temp 36.2 ?C (97.2 ?F) (Left Tympanic) Resp 16 Wt 70.9 kg (156 lb 3.2 oz) SpO2 99% BMI 24.46 kg/m? ALLERGIES No Known Allergies There is no problem list on file for this patient. No family history on file. Social History Marital status: Spouse name: Years of education: Number of children: Social History Main Topics Smoking status: Never Smoker Smokeless tobacco: Never Used Alcohol use: No Drug use: No Review of Systems Constitutional: Positive for chills, fever and malaise/fatigue (No longer, but did initially ). HENT: Negative for congestion, ear pain, sinus pain and sore throat. Respiratory: Positive for cough, sputum production and wheezing (Notes that she hears some odd sounds when she breathes out). Negative for shortness of breath. Cardiovascular: Negative for chest pain. Gastrointestinal: Negative for nausea. Neurological: Positive for dizziness (Off balance w/ positional changes- see HPI) and loss of consciousness (On - see above). Negative for tingling, tremors, sensory change, speech change, focal weakness and headaches. Objective Physical Exam Constitutional: She is oriented to person, place, and time and well-developed, well-nourished, and in no distress. Vital signs are normal. HENT: Head: Normocephalic. Right Ear: Tympanic membrane, external ear and ear canal normal. No drainage. Tympanic membrane is not perforated, not erythematous, not retracted and not bulging. No middle ear effusion. Left Ear: Ear canal normal. No drainage. Tympanic membrane is not perforated, not erythematous, not retracted and not bulging. No middle ear effusion. Nose: No rhinorrhea. Right sinus exhibits no maxillary sinus tenderness and no frontal sinus tenderness. Left sinus exhibits no maxillary sinus tenderness and no frontal sinus tenderness. Mouth/Throat: Uvula is midline and mucous membranes are normal. No oropharyngeal exudate, posterior oropharyngeal edema, posterior oropharyngeal erythema or tonsillar abscesses. Eyes: Conjunctivae and lids are normal. Cardiovascular: Normal rate, regular rhythm, S1 normal and S2 normal. Exam reveals no friction rub. Pulmonary/Chest: Effort normal. She has wheezes (Wheezing in L lower lobe on expiration). She has no rhonchi. She has no rales. Lymphadenopathy: Head (right side): No submental, no submandibular, no tonsillar, no preauricular, no posterior auricular and no occipital adenopathy present. Head (left side): No submental, no submandibular, no tonsillar, no preauricular, no posterior auricular and no occipital adenopathy present. Right cervical: No superficial cervical and no posterior cervical adenopathy present. Left cervical: No superficial cervical and no posterior cervical adenopathy present. Neurological: She is alert and oriented to person, place, and time. She has normal sensation, normal strength and intact cranial nerves. She displays no weakness and facial symmetry. She exhibits normal muscle tone. Gait normal. Coordination normal. ASSESSMENT/PLAN: 1. Viral URI with cough - ICD9: 465.9, ICD10: J06.9, B97.89 (primary diagnosis) - Discussed viral etiology and rationale for treatment. - Rapid strep negative in office today - Symptomatic treatment with prn analgesia - Supportive care with fluids and rest; Rx for cheratussin, as patient is having many issues falling asleep at night- thoroughly discussed indications, potential adverse effects, and risks associated with codeine use- warned to use as infrequently as possible and to avoid driving/operating heavy machinery etc, while taking- only use prior to bed- pt expressed understanding - Follow up in 3-5 days if symptoms persist or sooner if worsening of symptoms - CODEINE 10 MG-GUAIFENESIN 100 MG/5 ML ORAL LIQUID 2. Brief loss of consciousness - ICD9: 780.09, ICD10: R55 Could have been vasovagal secondary to sickness +/- other stressors. Workup negative in ED on . CXR negative today; Recommend more thorough evaluation by PCP to r/o other etiology - XR CHEST 2V FRONTAL/LAT 3. Fever, unspecified fever cause - ICD9: 780.60, ICD10: R50.9 Rapid strep negative; Suspect viral - RAPID STREP TEST B/O - XR CHEST 2V FRONTAL/LAT 4. Abnormal lung sounds - ICD9: 786.7, ICD10: R09.89 See above - XR CHEST 2V FRONTAL/LAT 5. BPPV (benign paroxysmal positional vertigo), unspecified laterality - ICD9: 386.11, ICD10: H81.10 Likely secondary to hitting head when she lost consciousness. Etiology and self-limiting course explained in detail, However bc of the LOC recommend further workup by PCP Reviewed red flags with patient and when to seek care sooner. The patient indicates understanding of these issues and agrees with the plan. Yaritza Arambula PA-C [facility] XR CHEST 2V FRONTAL/LATon XR CHEST 2V FRONTAL/LAT * * *Final Report* * * DATE OF EXAM: May 17 2018 1:03PM WOX [id number] - XR CHEST 2V FRONTAL/LAT / PROCEDURE REASON: Fever, unspecified fever cause * * * * Physician Interpretation * * * * EXAMINATION: CHEST RADIOGRAPH (2 VIEW FRONTAL and LATERAL) CLINICAL HISTORY: Fever, unspecified fever cause MQ: XC2_5 Comparison: None RESULT: The heart is normal in size. There is no arcadio pulmonary consolidation, pleural effusion, pneumothorax, or pulmonary vascular redistribution. A bone island is seen within the left humeral head. IMPRESSION: No acute pulmonary process is identified. Bobbin Doffer: SHAWN Transcribe Date/Time: May 17 2018 1:17P Dictated by : YUNG LOPEZ MD This examination was interpreted and the report reviewed and electronically signed by: YUNG LOPEZ MD on May 17 2018 1:18PM EST [id number] [facility] CNOVon 12-15-2017 CNOV Office Visit (ORTHWS ) TRICIA CORREA ([id number]) 1980 F Date Time Provider Department 12/15/17 8:40 AM GWENDOLYN GANNON During your visit today, we recorded the following information about you: Pulse Blood pressure Weight Height 63/minute 131/68 70.3 kg 1.702 m Frida Banegas Ma 12/23/2017 7:53 AM Signed AMB ROOMING INTAKE FLOWSHEET DATA Risk Screening Do you have concerns about personal safety or safety in the home?: No Patient here today for evaluation of bone overgrowth in the left lower leg. She does not have any pain. New x-ray at [facility] today. Gwendolyn Gannon MD 12/23/2017 7:53 AM Signed Gwendolyn Gannon MD Department of Orthopaedics Orthopaedics [address] [facility] [address] Dept: [phone] Dept December 15, 2017 CHIEF COMPLAINT: New Patient (Bone overgrowth left leg ) HPI: Ms. Tricia Correa is a 37 year old female who has noticed a prominence over her left lower knee, was worried about it and wanted to get it checked out. She denies any pain. She denies any functional problems with the leg or area. She does not feel anything has gotten worse since noticing. 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 She should follow-up if any symptoms should change in the area or become symptomatic. Otherwise, no follow-up necessary. Malignant transformation is far less than 1% so would be an unlikely situation. FOLLOW UP INSTRUCTIONS: As above Ms. Tricia Correa was advised as to contrast therapies and/or to take analgesics/anti-inflam matories as needed and all contraindications were reviewed. OBJECTIVE: Ms. Tricia Correa is a pleasant 37 year old in no apparent distress. Gen:BP 131/68 Pulse 63 Ht 5' 7 (1.70m) Wt 155 lb (70.3kg) BMI 24.27 kg/(m2). nl development, non obese, no deformities ENT: Normocephalic, normal hearing, moist mucosa CV: Pulses:DP/PT= 2+ and symmetric, capillary refill < 2 secs, no peripheral edema/varicosities Skin: no rash, bruising or lesions. Good turgor. Psych: cooperative and appropriate, alert and oriented x 3, good mood and affect. Musculoskeletal: There is an area of fullness and prominence over the proximal fibula. The area is nontender. Negative Tinel's in the area or around the course of the peroneal nerve. Full motion at the knee and ankle. No pain with knee or ankle motion or palpation. IMAGING: IMPRESSION: Proximal fibular osteochondroma. Bobbin Doffer: SHAWN ? Transcribe Date/Time: Dec 15 2017 ?4:25P Dictated by : LUDWIN HENRIQUEZ MD This examination was interpreted and the report reviewed and electronically signed by: LUDWIN HENRIQUEZ MD on Dec 15 2017 ?4:27PM ?EST Results-Findings * * *Final Report* * * DATE OF EXAM: Dec 15 2017 ?8:44AM ? WRX ? 5265 ?- ?XR TIBIA FIBULA 2V AP/LAT LT ?/ PROCEDURE REASON: Pain in left knee ?? ? * * * * Physician Interpretation * * * * ?Clinical Information: Pain AP and lateral views of the left tibia and fibula were obtained. No fracture is identified. There is a pedunculated well-circumscribed bony lesion projecting posteriorly from the proximal fibula consistent with osteochondroma. No other bony lesions identified. No soft tissue abnormalities. Supporting Subjective Information Below: Past Medical History: No past medical history on file. Past Surgical History: PAST SURGICAL HISTORY Procedure Laterality Date - NONE Family History: No family history on file. Social History:Social History Marital status: Spouse name: Years of education: Number of children: Social History Main Topics Smoking status: Never Smoker Smokeless tobacco: Never Used Alcohol use: No Drug use: No Medications: Current Outpatient Prescriptions: sertraline (ZOLOFT) 25 mg tablet Take 1 tablet by mouth once daily. MULTIVITAMIN ORAL Take by mouth. No current facility-administered medications for this visit. Allergies: Patient has no known allergies. ROS: General (negative for fatigue, malaise, weight loss/gain) HEENT (negative for headache, earache, recent vision changes, sinus pain, sore throat) Respiratory (no recent shortness of breath, hemoptysis) CV (negative for chest tightness, palpitations) Musculoskeletal (see HPI) Psych (no depression, anxiety) This note was partially generated using Dragon voice recognition system, and there may be some incorrect words, spellings, and punctuation that were not noted in checking the note before saving. Gwendolyn Gannon MD Referring Provider: SELF [[id number]] Allergies As of Date: 12/15/2017 (No Known Allergies) Date Reviewed: 12/15/2017 Reviewed by: Gwendolyn Gannon - Fully Assessed Reason for Visit: New Patient [172] Cmt: Bone overgrowth left leg Primary Visit Diagnosis:Osteochondro ma of fibula, left [D16.22] Prescriptions as of 12/15/2017 Sig: SERTRALINE 25 MG TABLET Take 1 tablet by mouth once d* MULTIVITAMIN ORAL Take by mouth. Problem List As Of Date: 12/15/2017 (None) Follow-up and Disposition History Recorded Encounter Status:Closed by GWENDOLYN GANNON MD on 12/23/17 [facility] PROGRESSon 12-15-2017 Protein mass conc HNO ID: [id number] Author: Gwendolyn Gannon Service: (none) Author Type: Physician Type: Progress Notes Filed: 12/23/2017 7:53 AM Note Text: Gwendolyn Gannon MD Department of Orthopaedics Orthopaedics [address] [facility] [address] Dept: [phone] Dept December 15, 2017 CHIEF COMPLAINT: New Patient (Bone overgrowth left leg ) HPI: Ms. Tricia Correa is a 37 year old female who has noticed a prominence over her left lower knee, was worried about it and wanted to get it checked out. She denies any pain. She denies any functional problems with the leg or area. She does not feel anything has gotten worse since noticing. 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 She should follow-up if any symptoms should change in the area or become symptomatic. Otherwise, no follow-up necessary. Malignant transformation is far less than 1% so would be an unlikely situation. FOLLOW UP INSTRUCTIONS: As above Ms. Tricia Correa was advised as to contrast therapies and/or to take analgesics/anti-inflam matories as needed and all contraindications were reviewed. OBJECTIVE: Ms. Tricia Correa is a pleasant 37 year old in no apparent distress. Gen:BP 131/68 Pulse 63 Ht 5' 7 (1.70m) Wt 155 lb (70.3kg) BMI 24.27 kg/(m2). nl development, non obese, no deformities ENT: Normocephalic, normal hearing, moist mucosa CV: Pulses:DP/PT= 2+ and symmetric, capillary refill < 2 secs, no peripheral edema/varicosities Skin: no rash, bruising or lesions. Good turgor. Psych: cooperative and appropriate, alert and oriented x 3, good mood and affect. Musculoskeletal: There is an area of fullness and prominence over the proximal fibula. The area is nontender. Negative Tinel's in the area or around the course of the peroneal nerve. Full motion at the knee and ankle. No pain with knee or ankle motion or palpation. IMAGING: IMPRESSION: Proximal fibular osteochondroma. Bobbin Doffer: PSCB ? Transcribe Date/Time: Dec 15 2017 ?4:25P Dictated by : LUDWIN HENRIQUEZ MD This examination was interpreted and the report reviewed and electronically signed by: LUDWIN HENRIQUEZ MD on Dec 15 2017 ?4:27PM ?EST Results-Findings * * *Final Report* * * DATE OF EXAM: Dec 15 2017 ?8:44AM ? WRX ? 5265 ?- ?XR TIBIA FIBULA 2V AP/LAT LT ?/ PROCEDURE REASON: Pain in left knee ?? ? * * * * Physician Interpretation * * * * ?Clinical Information: Pain AP and lateral views of the left tibia and fibula were obtained. No fracture is identified. There is a pedunculated well-circumscribed bony lesion projecting posteriorly from the proximal fibula consistent with osteochondroma. No other bony lesions identified. No soft tissue abnormalities. Supporting Subjective Information Below: Past Medical History: No past medical history on file. Past Surgical History: PAST SURGICAL HISTORY Procedure Laterality Date - NONE Family History: No family history on file. Social History:Social History Marital status: Spouse name: Years of education: Number of children: Social History Main Topics Smoking status: Never Smoker Smokeless tobacco: Never Used Alcohol use: No Drug use: No Medications: Current Outpatient Prescriptions: sertraline (ZOLOFT) 25 mg tablet Take 1 tablet by mouth once daily. MULTIVITAMIN ORAL Take by mouth. No current facility-administered medications for this visit. Allergies: Patient has no known allergies. ROS: General (negative for fatigue, malaise, weight loss/gain) HEENT (negative for headache, earache, recent vision changes, sinus pain, sore throat) Respiratory (no recent shortness of breath, hemoptysis) CV (negative for chest tightness, palpitations) Musculoskeletal (see HPI) Psych (no depression, anxiety) This note was partially generated using [employer] voice recognition system, and there may be some incorrect words, spellings, and punctuation that were not noted in checking the note before saving. Gwendolyn Gannon MD [facility] Protein mass conc HNO ID: [id number] Author: Frida Banegas Ma Service: (none) Author Type: (none) Type: Progress Notes Filed: 12/23/2017 7:53 AM Note Text: AMB ROOMING INTAKE FLOWSHEET DATA Risk Screening Do you have concerns about personal safety or safety in the home?: No Patient here today for evaluation of bone overgrowth in the left lower leg. She does not have any pain. New x-ray at [facility] today. [facility] Protein mass conc HNO ID: [id number] Author: YULIET Soto (Ct) Service: (none) Author Type: Clinical Director Treasurer Type: Progress Notes Filed: 12/15/2017 8:45 AM Note Text: Radiology Service Progress Note PATIENT NAME: Tricia Correa DATE OF SERVICE: December 15, 2017 TIME: 8:45 AM PATIENT IDENTITY VERIFICATION COMPLETED USING TWO (2) METHODS: Patient confirmed name verbally and Date of . PATIENT GENDER DATA: Female. status: : No status: NO. PATIENT RELEVANT IMPLANT DATA REVIEWED: Not Applicable RADIOLOGY DEPARTMENT: General X-ray: Exam(s) Completed: Lower Extremity X-Ray(s): Tibia Fibula, Left: PERIPHERAL IV DATA: Not applicable SIGNED BY: YULIET Soto December 15, 2017 8:45 AM [facility] XR TIBIA FIBULA 2V AP/LAT LT on 12-15-2017 XR TIBIA FIBULA 2V AP/LAT LT * * *Final Report* * * DATE OF EXAM: Dec 15 2017 8:44AM WRX [id number] - XR TIBIA FIBULA 2V AP/LAT LT / PROCEDURE REASON: Pain in left knee * * * * Physician Interpretation * * * * Clinical Information: Pain AP and lateral views of the left tibia and fibula were obtained. No fracture is identified. There is a pedunculated well-circumscribed bony lesion projecting posteriorly from the proximal fibula consistent with osteochondroma. No other bony lesions identified. No soft tissue abnormalities. IMPRESSION: Proximal fibular osteochondroma. Bobbin Doffer: PSCB Transcribe Date/Time: Dec 15 2017 4:25P Dictated by : LUDWIN HENRIQUEZ MD This examination was interpreted and the report reviewed and electronically signed by: LUDWIN HENRIQUEZ MD on Dec 15 2017 4:27PM EST [id number] [facility] Vital Signs Date Time Vital Sign Value Performing Clinician Facility 10-01-2024 14:35-0400 Body height 167.[address] [facility], [facility].; [employer] [facility], [facility]. 10-01-2024 14:35-0400 Body mass index (BMI) [Ratio] 30.67 kg/m2 [facility], [facility].; [employer], [facility]. 10-01-2024 14:35-0400 Body surface area Derived from formula 1.[address] [facility], [facility].; [employer], [facility]. 10-01-2024 14:35-0400 Body weight 86.[address] [facility], [facility].; [employer] [facility], [facility]. 10-01-2024 14:35-0400 Diastolic blood pressure 70 mm[Hg] [facility], [facility].; [employer], [employer]. Comment on above: Patient Position: Sitting; Cuff Location : Left Arm; Cuff Size: Standard 10-01-2024 14:35-0400 Heart rate 74 /min [facility], [facility].; [employer], [employer]. Comment on above: Pattern: Regular 10-01-2024 14:35-0400 Systolic blood pressure 110 mm[Hg] [facility], [facility].; [facility], [facility]. Comment on above: Patient Position: Sitting; Cuff Location : Left Arm; Cuff Size: Standard 06-25-2024 11:04-0500 Body height 167.64 cm Denise Ferraro [employer] [facility], [facility].; [facility] [employer] 06-25-2024 11:04-0500 Body mass index (BMI) [Ratio] 32.12 kg/m2 Denise Ferraro [employer]RAR[employer] [facility] [employer] [employer] [facility] [employer] 06-25-2024 11:04-0500 Body surface area Derived from formula 2 m2 Denise Ferraro [employer] [facility], [facility].; [facility], [facility]. 06-25-2024 11:04-0500 Body weight 90.27 kg Denise Ferraro [facility], [facility].; [employer] [facility], [facility]. 06-25-2024 11:04-0500 Diastolic blood pressure 79 mm[Hg] Denise Ferraro CIRCULATION LIBRARIAN [facility], [facility].; [employer] [facility], [employer]. Comment on above: Patient Position: Sitting; Cuff Location : Left Arm; Cuff Size: Standard 06-25-2024 11:04-0500 Heart rate 66 /min Denise Ferraro [facility], [facility].; [employer] [facility], [employer]. Comment on above: Pattern: Regular 06-25-2024 11:04-0500 Systolic blood pressure 125 mm[Hg] Denise Ferraro [employer]RAR[employer] [facility], [facility].; [employer] [facility], [employer]. Comment on above: Patient Position: Sitting; Cuff Location : Left Arm; Cuff Size: Standard 06-04-2024 08:00-0500 Body height 167.64 cm Michell Trejo RN [facility], [facility].; [employer] [facility], [facility]. 06-04-2024 08:00-0500 Body mass index (BMI) [Ratio] 32.76 kg/m2 Michell Trejo RN [facility], [facility].; [employer] [facility] [employer] 06-04-2024 08:00-0500 Body surface area Derived from formula 2.01 m2 Michell Trejo RN [facility], [facility].; [employer] [facility]. 06-04-2024 08:00-0500 Body weight 92.08 kg Michell Trejo RN [facility].; [facility]. 06-04-2024 08:00-0500 Diastolic blood pressure 76 mm[Hg] Michell Trejo RN [facility].; [facility], [facility]. Comment on above: Patient Position: Sitting; Cuff Location : Left Arm; Cuff Size: Standard 06-04-2024 08:00-0500 Diastolic blood pressure 66 mm[Hg] Tamiko Leonard PA-C Work Phone: [facility].; [facility], [facility]. Comment on above: Patient Position: Sitting; Cuff Location : Left Arm; Cuff Size: Standard 06-04-2024 08:00-0500 Heart rate 74 /min Michell Trejo RN [facility], [facility].; [facility], [facility]. Comment on above: Pattern: Regular 06-04-2024 08:00-0500 Systolic blood pressure 135 mm[Hg] Michell Trejo RN [facility].; [facility], [facility]. Comment on above: Patient Position: Sitting; Cuff Location : Left Arm; Cuff Size: Standard 06-04-2024 08:00-0500 Systolic blood pressure 108 mm[Hg] Tamiko Leonard PA-C Work Phone: [facility].; [facility], [facility]. Comment on above: Patient Position: Sitting; Cuff Location : Left Arm; Cuff Size: Standard 10-24-2023 08:50-0400 Body height 167.64 cm Denise Ferraro LPN [facility], [facility].; [facility]. 10-24-2023 08:50-0400 Body mass index (BMI) [Ratio] 31.47 kg/m2 Denise Ferraro LPN [facility].; [facility], [facility]. 10-24-2023 08:50-0400 Body surface area Derived from formula 1.98 m2 Denise Ferraro LPN [facility], [facility].; [facility], [facility]. 10-24-2023 08:50-0400 Body weight 88.45 kg Denise Ferraro LPN [facility], [facility].; [facility], [facility]. 10-24-2023 08:50-0400 Diastolic blood pressure 74 mm[Hg] Denise Ferraromarielle KABA [facility], [facility].; [facility], [facility]. Comment on above: Patient Position: Sitting; Cuff Location : Left Arm; Cuff Size: Standard 10-24-2023 08:50-0400 Heart rate 64 /min Denise Ferraro LPN [facility].; [facility], [employer]. Comment on above: Pattern: Regular 10-24-2023 08:50-0400 Systolic blood pressure 124 mm[Hg] Denise Ferraro [facility], [facility].; [facility], [facility]. Comment on above: Patient Position: Sitting; Cuff Location : Left Arm; Cuff Size: Standard 09-17-2022 10:40-0400 Body height 167.64 cm Iwona Gray MA [facility], [facility].; [facility], [facility]. 09-17-2022 10:40-0400 Body mass index (BMI) [Ratio] 30.99 kg/m2 Iwona Gray MA [facility], [facility].; [facility], [facility]. 09-17-2022 10:40-0400 Body surface area Derived from formula 1.97 m2 Iwona Gray MA [facility], [facility].; [facility], [facility]. 09-17-2022 10:40-0400 Body temperature 98.2 [degF] Iwona Gray MA [facility], [facility].; [employer] [facility], [employer]. Comment on above: Method: Tympanic 09-17-2022 10:40-0400 Body weight 87.09 kg Iwona Gray MA [facility], [facility].; [facility], [facility]. 09-17-2022 10:40-0400 Diastolic blood pressure 80 mm[Hg] Iwona Gray MA [facility], [facility].; [employer] [facility], [employer]. Comment on above: Patient Position: Sitting; Cuff Location : Left Arm; Cuff Size: Standard 09-17-2022 10:40-0400 Heart rate 82 /min Iwona Gray MA [facility], [facility].; [employer]. Comment on above: Pattern: Regular 09-17-2022 10:40-0400 Inhaled oxygen concentration 21 % Iwona Gray MA [facility], [facility].; [facility]. Comment on above: Room air 09-17-2022 10:40-0400 SaO2% (BldA) [Mass fraction] 98 % Iwona Gray MA [facility].; [facility]. 09-17-2022 10:40-0400 Systolic blood pressure 122 mm[Hg] Iwona Gray MA [facility].; [facility], [facility]. Comment on above: Patient Position: Sitting; Cuff Location : Left Arm; Cuff Size: Standard 09-14-2022 14:16-0400 Body temperature 99.7 [degF] Krislyn Aberegg PA Work Phone: [facility] 09-14-2022 14:16-0400 Body weight 88.45 kg Krislyn Aberegg PA Work Phone: [facility] 09-14-2022 14:16-0400 Diastolic blood pressure 72 mm[Hg] Krislyn Aberegg PA Work Phone: [facility] 09-14-2022 14:16-0400 Heart rate 116 /min Krislyn Aberegg PA Work Phone: [facility] 09-14-2022 14:16-0400 Respiratory rate 16 /min Krislyn Aberegg PA Work Phone: [facility] 09-14-2022 14:16-0400 SaO2% (BldA) [Mass fraction] 98 % Krislyn Aberegg PA Work Phone: [facility] 09-14-2022 14:16-0400 Systolic blood pressure 122 mm[Hg] Krislyn Aberegg PA Work Phone: [facility] 08-08-2022 10:52-0400 Body height 167.64 cm Tricia Tubbs LPN [facility], [facility].; [facility]. 08-08-2022 10:52-0400 Body mass index (BMI) [Ratio] 31.31 kg/m2 Tricia Tubbs [employer] [facility] [employer] [facility] [employer] 08-08-2022 10:52-0400 Body surface area Derived from formula 1.97 m2 Tricia Tubbs CIRC[employer]ATION LIBRARIAN [facility] 08-08-2022 10:52-0400 Body weight 88 kg Tricia Tubbs [facility] [employer] 08-08-2022 10:52-0400 Diastolic blood pressure 79 mm[Hg] Tricia Tubbs [facility] [employer] Comment on above: Patient Position: Sitting; Cuff Location : Left Arm; Cuff Size: Standard 08-08-2022 10:52-0400 Heart rate 74 /min Tricia Tubbs [facility] [employer], [employer]. Comment on above: Pattern: Regular 08-08-2022 10:52-0400 Systolic blood pressure 121 mm[Hg] Tricia Tubbs [facility] [employer], [employer]. Comment on above: Patient Position: Sitting; Cuff Location : Left Arm; Cuff Size: Standard 08-13-2021 10:03-0400 Body height 167.64 cm Tricia Tubbs [facility] [employer] 08-13-2021 10:03-0400 Body mass index (BMI) [Ratio] 30.34 kg/m2 Tricia Tubbs [employer] [facility] [employer] 08-13-2021 10:03-0400 Body surface area Derived from formula 1.95 m2 Tricia Tubbs [employer]ATION [employer]RAR[employer] [facility] [employer], [employer]. 08-13-2021 10:03-0400 Body weight 85.28 kg Tricia Tubbs [facility] [employer] [facility], [facility] [employer], [employer]. 08-13-2021 10:03-0400 Diastolic blood pressure 76 mm[Hg] Tricia Tubbs [facility] [employer] [facility], [facility]. Comment on above: Patient Position: Sitting; Cuff Location : Left Arm; Cuff Size: Standard 08-13-2021 10:03-0400 Heart rate 73 /min Tricia Larsonlabach [facility], [facility].; [employer]. Comment on above: Pattern: Regular 08-13-2021 10:03-0400 Systolic blood pressure 121 mm[Hg] Tricia Larsonlabach [facility] [employer]. Comment on above: Patient Position: Sitting; Cuff Location : Left Arm; Cuff Size: Standard 06-15-2020 14:36-0500 Body height 167.64 cm Tricia Banda Suly [facility] [employer] 06-15-2020 14:36-0500 Body mass index (BMI) [Ratio] 28.73 kg/m2 Tricia Banda Suly [facility] [employer] [employer] [facility]. 06-15-2020 14:36-0500 Body surface area Derived from formula 1.9 m2 [facility]labach [facility].; [employer]. 06-15-2020 14:36-0500 Body weight 80.74 kg Tricia Larsonlabach [facility], [facility].; [employer]. 06-15-2020 14:36-0500 Diastolic blood pressure 77 mm[Hg] Tricia Larsonlabach [facility].; [employer]. Comment on above: Patient Position: Sitting; Cuff Location : Left Arm; Cuff Size: Standard 06-15-2020 14:36-0500 Heart rate 70 /min Tricia Larsonlabach [facility] [employer] [facility].; [employer]. Comment on above: Pattern: Regular 06-15-2020 14:36-0500 Systolic blood pressure 115 mm[Hg] Tricia Larsonlabach [employer]RARIAN [place] [employer] [facility].; [employer]. Comment on above: Patient Position: Sitting; Cuff Location : Left Arm; Cuff Size: Standard 05-04-2019 09:45-0500 Body height 167.64 cm Senait German LPN [facility], [facility].; [facility], Inc[employer] 05-04-2019 09:45-0500 Body mass index (BMI) [Ratio] 26.79 kg/m2 Senait German LPN [facility], [facility].; [employer], [employer] 05-04-2019 09:45-0500 Body surface area Derived from formula 1.85 m2 Senait German LPN [facility], Inc.; [place] [employer], [employer] 05-04-2019 09:45-0500 Body temperature 99.7 [degF] [facility], [facility].; [employer], [employer]. Comment on above: Method: Tympanic 05-04-2019 09:45-0500 Body weight 75.3 kg Senait German LPN [facility], [facility].; [employer], [employer] 05-04-2019 09:45-0500 Diastolic blood pressure 71 mm[Hg] Senait German LPN [facility], [facility].; [employer], [employer]. Comment on above: Patient Position: Sitting; Cuff Location : Left Arm; Cuff Size: Standard 05-04-2019 09:45-0500 Heart rate 85 /min Senait German LPN [facility], [facility].; [employer], [employer]. Comment on above: Pattern: Regular 05-04-2019 09:45-0500 Inhaled oxygen concentration 21 % Senait German LPN [facility], [facility].; [employer], [employer]. Comment on above: Room air 05-04-2019 09:45-0500 SaO2% (BldA) [Mass fraction] 99 % Senait German LPN [facility], [facility].; [employer]. 05-04-2019 09:45-0500 Systolic blood pressure 119 mm[Hg] Senait German CIRCULATION LIBRARIAN [facility], [facility].; [employer]. Comment on above: Patient Position: Sitting; Cuff Location : Left Arm; Cuff Size: Standard 01-01-2019 10:36-0400 Body height 167.64 cm [facility], Inc.; [place] [employer], [employer]. 01-01-2019 10:36-0400 Body mass index (BMI) [Ratio] 24.69 kg/m2 Deb Wederrick KABA [facility] [employer], Inc.; [employer], [employer] 01-01-2019 10:36-0400 Body surface area Derived from formula 1.79 m2 Deb Zac KABA [place] [employer] [facility], Inc.; [employer], [employer] 01-01-2019 10:36-0400 Body weight 69.4 kg Deb Wederrick KABA [place] [employer], [employer].; [employer], [employer] 01-01-2019 10:36-0400 Diastolic blood pressure 79 mm[Hg] Deb [facility]rick [facility], Inc.; [employer], [employer]. Comment on above: Patient Position: Sitting; Cuff Location : Left Arm; Cuff Size: Standard 01-01-2019 10:36-0400 Heart rate 63 /min Debvasyl Frank LPN [facility] [employer] [facility], Inc.; [employer], [employer]. Comment on above: Pattern: Regular 01-01-2019 10:36-0400 Systolic blood pressure 123 mm[Hg] Deb Antunezderrick KABA [employer], Inc.; [employer], [employer]. Comment on above: Patient Position: Sitting; Cuff Location : Left Arm; Cuff Size: Standard 10-16-2017 09:21-0400 Body height 167.64 cm Deb Zac KABA [facility] [employer], [employer].; [employer] 10-16-2017 09:21-0400 Body mass index (BMI) [Ratio] 25.67 kg/m2 Deb Zac KABA [employer], [employer].; [employer] 10-16-2017 09:21-0400 Body surface area Derived from formula 1.81 m2 Deb Wederrick CIRCULATION LIBRARIAN [employer], [employer].; [employer], [employer] 10-16-2017 09:21-0400 Body weight 72.15 kg Deb Zac KABA [employer], [employer].; [employer] 10-16-2017 09:21-0400 Diastolic blood pressure 69 mm[Hg] Deb Zac KABA [employer], [employer].; [employer], [employer] Comment on above: Patient Position: Sitting; Cuff Location : Left Arm; Cuff Size: Standard 10-16-2017 09:21-0400 Heart rate 79 /min Debvasyl Frank LPN [facility], Inc.; [employer], [employer] Comment on above: Pattern: Regular 10-16-2017 09:21-0400 Systolic blood pressure 116 mm[Hg] Deb Zac KABA [facility], Inc.; [employer], [employer] Comment on above: Patient Position: Sitting; Cuff Location : Left Arm; Cuff Size: Standard 10-18-2016 13:05-0400 Body height 167.64 cm Deb Frank LPN [place] [facility] [facility], Inc.; [employer] 10-18-2016 13:05-0400 Body mass index (BMI) [Ratio] 24.86 kg/m2 Deb Frank LPN [place] [facility] [facility], Inc.; [employer] 10-18-2016 13:05-0400 Body surface area Derived from formula 1.79 m2 Deb Frank LPN [place] [facility] [facility], Inc.; [employer], [employer] 10-18-2016 13:05-0400 Body weight 69.85 kg Deb Frank LPN [place] [employer] [facility], Inc.; [employer] 10-18-2016 13:05-0400 Diastolic blood pressure 75 mm[Hg] Deb Frank LPN [place] [employer] [facility], Inc.; [employer], [employer] Comment on above: Patient Position: Sitting; Cuff Location : Left Arm; Cuff Size: Standard 10-18-2016 13:05-0400 Heart rate 73 /min Deb Frank LPN [place] [employer], [employer].; [employer], [employer]. Comment on above: Pattern: Regular 10-18-2016 13:05-0400 Systolic blood pressure 121 mm[Hg] Deb Frank LPN [facility] [employer], [employer].; [employer], [employer]. Comment on above: Patient Position: Sitting; Cuff Location : Left Arm; Cuff Size: Standard 09-13-2016 11:20-0400 Body height 167.64 cm Deb Wederrick KABA [place] [facility] [facility], Inc.; [employer] 09-13-2016 11:20-0400 Body mass index (BMI) [Ratio] 25.02 kg/m2 Deb Frank LPN [facility], Inc.; [employer], [employer] 09-13-2016 11:20-0400 Body surface area Derived from formula 1.79 m2 Deb Frank LPN [place] [facility] [facility], Inc.; [employer], [employer] 09-13-2016 11:20-0400 Body weight 70.31 kg [facility], Inc.; [employer], [employer] 09-13-2016 11:20-0400 Diastolic blood pressure 76 mm[Hg] Deb Frank LPN [place] [facility] [facility], Inc.; [employer], [employer]. Comment on above: Patient Position: Sitting; Cuff Location : Left Arm; Cuff Size: Standard 09-13-2016 11:20-0400 Heart rate 66 /min Debvasyl Frank LPN [place] [facility] [facility], Inc.; [employer], [employer]. Comment on above: Pattern: Regular 09-13-2016 11:20-0400 Systolic blood pressure 120 mm[Hg] Deb Zac KABA [place] [facility] [facility], Inc.; [employer], [employer]. Comment on above: Patient Position: Sitting; Cuff Location : Left Arm; Cuff Size: Standard 06-14-2016 09:13-0500 Body height 167.64 cm Neris Frankel LPN [place] [facility] [facility], Inc.; [employer], [employer] 06-14-2016 09:13-0500 Body mass index (BMI) [Ratio] 25.99 kg/m2 Neris Frankel LPN [employer] [employer], [employer].; [employer], [employer] 06-14-2016 09:13-0500 Body surface area Derived from formula 1.82 m2 Neris Frankel LPN [facility] [employer], Inc.; [employer], [employer] 06-14-2016 09:13-0500 Body weight 73.03 kg Neris Frankel LPN [employer].; [employer]. 06-14-2016 09:13-0500 Diastolic blood pressure 86 mm[Hg] Neris Zulema Frankel LPN [employer].; [employer]. Comment on above: Patient Position: Sitting; Cuff Location : Left Arm; Cuff Size: Standard 06-14-2016 09:13-0500 Heart rate 74 /min Neris Frankel LPN [employer]. Comment on above: Pattern: Regular 06-14-2016 09:13-0500 Systolic blood pressure 133 mm[Hg] Neris Zulema Frankel LPN [employer].; [employer]. Comment on above: Patient Position: Sitting; Cuff Location : Left Arm; Cuff Size: Standard 04-26-2016 11:50-0500 Body height 167.64 cm Michell Trejo RN [employer].; [employer] 04-26-2016 11:50-0500 Body mass index (BMI) [Ratio] 25.66 kg/m2 Michell Trejo RN [employer].; [employer], [employer] 04-26-2016 11:50-0500 Body surface area Derived from formula 1.81 m2 Michell Trejo RN [employer].; [employer], [employer] 04-26-2016 11:50-0500 Body weight 72.12 kg Michell Trejo RN [employer].; [employer]. 04-26-2016 11:50-0500 Diastolic blood pressure 76 mm[Hg] Michell Trejo RN [employer].; [employer]. Comment on above: Patient Position: Sitting; Cuff Location : Left Arm; Cuff Size: Standard 04-26-2016 11:50-0500 Heart rate 80 /min Michell Trejo RN [employer].; [employer]. Comment on above: Pattern: Regular 04-26-2016 11:50-0500 Systolic blood pressure 114 mm[Hg] Michell Trejo RN [employer].; [facility] Comment on above: Patient Position: Sitting; Cuff Location : Left Arm; Cuff Size: Standard 12-08-2015 10:05-0400 Body height 167.64 cm Deb Frank SENDY [facility], Inc.; [employer], [employer]. 12-08-2015 10:05-0400 Body mass index (BMI) [Ratio] 24.05 kg/m2 Deb nAtunezderrick HAWTHORNEN [facility], Inc.; [employer], [employer]. 12-08-2015 10:05-0400 Body surface area Derived from formula 1.77 m2 Deb Antunezderrick KABA [facility], Inc.; [employer], [employer]. 12-08-2015 10:05-0400 Body weight 67.59 kg Deb nAtunezderrick KABA [facility], Inc.; [employer], [employer]. 12-08-2015 10:05-0400 Diastolic blood pressure 66 mm[Hg] Deb Antunezderrick HAWTHORNEN [facility], Inc.; [employer], [employer]. Comment on above: Patient Position: Sitting; Cuff Location : Left Arm; Cuff Size: Standard 12-08-2015 10:05-0400 Heart rate 66 /min Deb Antunezderrick KABA [facility], Inc.; [employer], [employer]. Comment on above: Pattern: Regular 12-08-2015 10:05-0400 Systolic blood pressure 114 mm[Hg] Deb Rosenbergbrandi KABA [facility], Inc.; [employer], [employer]. Comment on above: Patient Position: Sitting; Cuff Location : Left Arm; Cuff Size: Standard 11-06-2015 13:59-0400 Body height 167.64 cm Deb Antunezderrick KABA [place] [employer] [facility], Inc.; [employer], [employer]. 11-06-2015 13:59-0400 Body mass index (BMI) [Ratio] 24.21 kg/m2 Deb Wederrick KABA [place] [employer] [facility], Inc.; [employer], [employer]. 11-06-2015 13:59-0400 Body surface area Derived from formula 1.77 m2 Deb Wederrick KABA [place] [employer] [facility], Inc.; [employer], [employer]. 11-06-2015 13:59-0400 Body weight 68.04 kg Deb Wederrick KABA [place] [employer] [facility], Inc.; [employer], [employer]. 11-06-2015 13:59-0400 Diastolic blood pressure 77 mm[Hg] Deb Zac KABA [place] [employer] [facility], Inc.; [employer], [employer]. Comment on above: Patient Position: Sitting; Cuff Location : Left Arm; Cuff Size: Standard 11-06-2015 13:59-0400 Heart rate 80 /min Debvasyl Frank LPN [place] [employer] [facility], Inc.; [employer] Comment on above: Pattern: Regular 11-06-2015 13:59-0400 Systolic blood pressure 119 mm[Hg] Deb Zac KABA [place] [employer], Inc.; [employer] Comment on above: Patient Position: Sitting; Cuff Location : Left Arm; Cuff Size: Standard 06-26-2015 12:40-0500 Body height 167.64 cm Debvasyl Frank LPN [place] [employer], Inc.; [employer], [employer] 06-26-2015 12:40-0500 Body mass index (BMI) [Ratio] 25.2 kg/m2 Deb [facility] LGL/[employer], Inc.; [employer], [employer]. 06-26-2015 12:40-0500 Body surface area Derived from formula 1.8 m2 Deb Frank LPN [place] [employer], Inc.; [employer], [employer] 06-26-2015 12:40-0500 Body temperature 98.6 [degF] Deb Frank LPN [employer], [employer].; [employer], [employer]. Comment on above: Method: Tympanic 06-26-2015 12:40-0500 Body weight 70.82 kg Deb Frank LPN [place] [employer], Inc.; [employer], [employer] 06-26-2015 12:40-0500 Diastolic blood pressure 77 mm[Hg] Deb Zac KABA [place] [employer], Inc.; [employer] Comment on above: Patient Position: Sitting; Cuff Location : Left Arm; Cuff Size: Standard 06-26-2015 12:40-0500 Heart rate 79 /min Deb Wederrick KABA [employer].; [employer]. Comment on above: Pattern: Regular 06-26-2015 12:40-0500 Inhaled oxygen concentration 21 % Deb Wederrick KABA [employer].; [employer]. Comment on above: Room air 06-26-2015 12:40-0500 SaO2% (BldA) [Mass fraction] 95 % Deb Wederrick KABA [employer].; [employer]. 06-26-2015 12:40-0500 Systolic blood pressure 128 mm[Hg] Deb Antunezderrick KABA [employer].; [employer]. Comment on above: Patient Position: Sitting; Cuff Location : Left Arm; Cuff Size: Standard 08-16-2014 17:30-0400 Body height 167.64 cm TamikoWonder Forgeer PA-C Work Phone: [employer].; [employer]. 08-16-2014 17:30-0400 Body mass index (BMI) [Ratio] 24.53 kg/m2 TamikoWonder Forgeer PA-C Work Phone: [employer]; [employer]. 08-16-2014 17:30-0400 Body surface area Derived from formula 1.78 m2 Tamiko Leonard PA-C Work Phone: [employer].; [employer]. 08-16-2014 17:30-0400 Body temperature 99.2 [degF] Tamiko Leonard PA-C Work Phone: [employer]; [employer]. Comment on above: Method: Tympanic 08-16-2014 17:30-0400 Body weight 68.95 kg Tamiko Leonard PA-C Work Phone: [employer].; [employer]. 08-16-2014 17:30-0400 Diastolic blood pressure 66 mm[Hg] Tamiko Leonard PA-C Work Phone: [place] [employer] [facility], [employer].; [employer]. Comment on above: Patient Position: Sitting; Cuff Location : Left Arm; Cuff Size: Large 08-16-2014 17:30-0400 Heart rate 77 /min Tamiko Tonyer PA-C Work Phone: [place] [employer], [employer].; [employer], [employer]. Comment on above: Pattern: Regular 08-16-2014 17:30-0400 Systolic blood pressure 151 mm[Hg] Tamiko Tonyer PA-C Work Phone: [place] [employer], [employer].; [employer], [employer]. Comment on above: Patient Position: Sitting; Cuff Location : Left Arm; Cuff Size: Large 12-16-2013 15:15-0400 Body height 167.64 cm Deb Frank LPN [facility], Inc.; [employer], [employer] 12-16-2013 15:15-0400 Body mass index (BMI) [Ratio] 24.55 kg/m2 Deb Frank LPN [place] [employer] [facility], Inc.; [employer], [employer]. 12-16-2013 15:15-0400 Body surface area Derived from formula 1.78 m2 Deb Frank LPN [place] [employer] [facility], Inc.; [employer], [employer]. 12-16-2013 15:15-0400 Body weight 69 kg Deb Frank LPN [place] [employer] [facility], Inc.; [employer], [employer] 12-16-2013 15:15-0400 Diastolic blood pressure 65 mm[Hg] Deb Frank LPN [place] [employer] [facility], Inc.; [employer], [employer]. Comment on above: Patient Position: Sitting; Cuff Location : Left Arm; Cuff Size: Standard 12-16-2013 15:15-0400 Heart rate 80 /min Deb Frank LPN [place] [employer] [facility], Inc.; [employer], [employer]. Comment on above: Pattern: Regular 12-16-2013 15:15-0400 Systolic blood pressure 106 mm[Hg] Deb Frank LPN [place] [employer]; [employer]. Comment on above: Patient Position: Sitting; Cuff Location : Left Arm; Cuff Size: Standard 05-04-2013 15:45-0500 Body height 166.62 cm Tamiko Leonard PA-C Work Phone: [employer]; [employer]. 05-04-2013 15:45-0500 Body mass index (BMI) [Ratio] 25 kg/m2 Tamiko Leonard PA-C Work Phone: [employer]; [employer]. 05-04-2013 15:45-0500 Body surface area Derived from formula 1.78 m2 Tamiko Leonard PA-C Work Phone: [employer]; [employer]. 05-04-2013 15:45-0500 Body weight 69.4 kg Tamiko Leonard PA-C Work Phone: [employer]; [employer]. 05-04-2013 15:45-0500 Diastolic blood pressure 82 mm[Hg] Tamiko Leonard PA-C Work Phone: [employer]; [employer]. Comment on above: Patient Position: Sitting; Cuff Location : Left Arm; Cuff Size: Standard 05-04-2013 15:45-0500 Heart rate 73 /min Tamiko Leonard PA-C Work Phone: [employer]; [employer]. Comment on above: Pattern: Regular 05-04-2013 15:45-0500 Systolic blood pressure 136 mm[Hg] Tamiko Leonard PA-C Work Phone: [employer]; [employer]. Comment on above: Patient Position: Sitting; Cuff Location : Left Arm; Cuff Size: Standard 03-30-2013 09:10-0500 Body temperature 96.6 [degF] Tamiko Leonard PA-C Work Phone: [employer]; [employer] Comment on above: Method: Tympanic 03-30-2013 09:10-0500 Body weight 68.04 kg Tamiko Leonard PA-C Work Phone: [employer].; [employer]. 03-30-2013 09:10-0500 Diastolic blood pressure 77 mm[Hg] Tamiko Leonard PA-C Work Phone: [employer].; [employer]. Comment on above: Patient Position: Sitting; Cuff Location : Right Arm; Cuff Size: Standard 03-30-2013 09:10-0500 Heart rate 87 /min Tamiko Tonyer PA-C Work Phone: [employer].; [employer]. Comment on above: Pattern: Regular 03-30-2013 09:10-0500 Systolic blood pressure 139 mm[Hg] Tamiko Leonard PA-C Work Phone: [employer].; [employer]. Comment on above: Patient Position: Sitting; Cuff Location : Right Arm; Cuff Size: Standard 11-19-2012 16:40-0400 Body height 166.62 cm Deb Frank LPN [place] [facility], Inc.; [employer], [employer]. 11-19-2012 16:40-0400 Body mass index (BMI) [Ratio] 24.84 kg/m2 Deb Frank LPN [place] [employer] [facility], Inc.; [employer], [employer]. 11-19-2012 16:40-0400 Body surface area Derived from formula 1.77 m2 Deb Frank LPN [place] [employer] [facility], [facility].; [employer], [employer]. 11-19-2012 16:40-0400 Body weight 68.98 kg Deb Frank LPN [employer], [employer].; [employer]. 11-19-2012 16:40-0400 Diastolic blood pressure 83 mm[Hg] Deb Frank LPN [place] [employer] [facility], Inc.; [employer]. Comment on above: Patient Position: Sitting; Cuff Location : Left Arm; Cuff Size: Standard 11-19-2012 16:40-0400 Heart rate 74 /min Deb Frank LPN [facility], [facility].; [facility]. Comment on above: Pattern: Regular 11-19-2012 16:40-0400 Systolic blood pressure 129 mm[Hg] Deb Zac KABA [facility], [facility].; [facility], [employer]. Comment on above: Patient Position: Sitting; Cuff Location : Left Arm; Cuff Size: Standard Encounters Encounter Date Encounter Type Care Provider Facility Start: 11-01-2024 End: 11-01-2024 Medication Tamiko Leonard PA-C [facility] Start: 10-01-2024 End: 10-01-2024 Office outpatient visit 15 minutes Tamiko Leonard PA-C Work Phone: [employer]. Start: 09-29-2024 End: 09-29-2024 Medication Tamiko Leonard PA-C Work Phone: [employer] [facility] Start: 08-26-2024 End: 08-26-2024 Medication Tamiko Leonard PA-C Work Phone: [employer] [facility]. Start: 07-23-2024 End: 07-23-2024 Medication Tamiko Leonard PA-C Work Phone: [employer] [facility]. Start: 06-25-2024 End: 06-25-2024 Office outpatient visit 15 minutes Tamiko Leonard PA-C [facility] Start: 06-04-2024 ambulatory [facility] Start: 06-04-2024 End: 06-04-2024 Office outpatient visit 25 minutes Tamiko Leonard PA-C Work Phone: [employer]. Start: 06-04-2024 Review Tamiko Leonard PA-C Work Phone: [employer]. Start: 12-08-2023 End: 12-08-2023 Medication Tamiko Leonard PA-C Work Phone: [employer] Start: 11-05-2023 End: 11-05-2023 Medication Tamiko Leonard PA-C Work Phone: [employer]. Start: 10-24-2023 End: 10-24-2023 Office outpatient visit 15 minutes Tamiko Leonard PA-C Work Phone: [employer]. Start: 12-25-2022 End: 12-25-2022 Medication Tamiko Leonard PA-C Work Phone: [employer]. Start: 09-17-2022 End: 09-17-2022 Office outpatient visit 15 minutes Tamiko Leonrad PA-C Work Phone: [employer]. Start: 09-14-2022 End: 09-14-2022 Patient encounter procedure Shaw Leija PA Work Phone: [facility] Comment on above: URI, acute (Primary Dx); Sore throat Start: 08-08-2022 End: 08-08-2022 Patient encounter procedure Tamiko Leonard PA-C Work Phone: [employer]. Start: 08-08-2022 End: 08-08-2022 Patient encounter status Tamiko Leonard PA-C Work Phone: [employer].; [employer]. Start: 02-25-2022 End: 02-25-2022 Medication Tamiko Leonard PA-C Work Phone: [employer]. Start: 10-24-2021 End: 10-24-2021 Medication Tamiko Leonard PA-C Work Phone: [employer]. Start: 09-12-2021 End: 09-12-2021 Medication Tamiko Leonard PA-C Work Phone: [employer]. Start: 08-13-2021 End: 08-13-2021 Patient encounter procedure Tamiko Leonard PA-C Work Phone: [employer] Start: 08-13-2021 End: 08-13-2021 Patient encounter status Tamiko HDZC Work Phone: [employer].; [employer]. Start: 08-14-2020 End: 08-14-2020 Medication Tamiko HDZC Work Phone: [employer]. Start: 06-15-2020 End: 06-15-2020 Patient encounter procedure Tamiko HDZC Work Phone: [employer]. Start: 06-15-2020 End: 06-15-2020 Patient encounter status Tamiko Leonard PA-C Work Phone: [employer].; [employer]. Start: 05-04-2019 End: 05-04-2019 Office outpatient visit 15 minutes Tamiko HDZC Work Phone: [employer]. Start: 01-01-2019 End: 12-31-2018 Historical Summary Tamiko Leonard PA-C Work Phone: [employer] Start: 01-01-2019 End: 01-01-2019 Patient encounter status Tamiko HDZC Work Phone: [employer].; [employer]. Start: 01-01-2019 End: 01-01-2019 Periodic preventive med est patient 18-39 yrs Tamiko HDZC Work Phone: [employer]. Start: 05-27-2018 End: 05-27-2018 Medication Tamiko HDZC Work Phone: [employer]. Start: 05-19-2018 End: 05-19-2018 Telephone follow-up Tamiko HDZC Work Phone: [employer] Start: 05-17-2018 End: 05-18-2018 Patient encounter procedure YARITZA ARAMBULA (PA) [facility] Start: 12-15-2017 End: 12-23-2017 Patient encounter procedure GWENDOLYN GANNON [facility] Start: 10-16-2017 End: 10-16-2017 Office outpatient visit 15 minutes Tamiko Leonard PA-C Work Phone: [employer]. Start: 10-18-2016 End: 10-18-2016 Office outpatient visit 10 minutes Tamiko Leonard PA-C Work Phone: [employer]. Start: 09-13-2016 End: 09-13-2016 Office outpatient visit 15 minutes Tamiko Leonard PA-C Work Phone: [employer]. Start: 09-09-2016 End: 09-09-2016 Medication Tamiko Leonard PA-C Work Phone: [employer]. Start: 06-14-2016 End: 06-14-2016 Patient encounter procedure Tamiko Leonard PA-C Work Phone: [employer]. Start: 04-26-2016 End: 04-26-2016 Patient encounter procedure Tamiko Leonard PA-C Work Phone: [employer]. Start: 04-26-2016 End: 04-26-2016 Patient encounter status Tamiko Leonard PA-C Work Phone: [employer].; [employer]. Work Phone: Start: 12-08-2015 End: 12-08-2015 Patient encounter procedure Tamiko Leonard PA-C Work Phone: [employer]. Start: 11-06-2015 End: 11-07-2015 Patient encounter procedure Tamiko Leonard PA-C Work Phone: [employer]. Start: 06-26-2015 End: 06-26-2015 Patient encounter procedure Tamiko Leonard PA-C Work Phone: [employer]. Start: 08-16-2014 End: 08-16-2014 Office outpatient visit 15 minutes Tamiko Leonard PA-C Work Phone: [employer]. Start: 12-16-2013 End: 12-16-2013 Patient encounter procedure Tamiko DHZC Work Phone: [employer]. Start: 12-16-2013 End: 12-16-2013 Unspecified general medical examination Tamiko HDZC Work Phone: [employer].; [employer]. Start: 05-04-2013 End: 05-04-2013 Patient encounter procedure Tamiko HDZC Work Phone: [employer] Start: 03-30-2013 End: 03-30-2013 Patient encounter procedure Tamiko OLGUIN-C Work Phone: [employer]. Start: 11-19-2012 End: 11-19-2012 Patient encounter procedure Tamiko HDZC Work Phone: [employer]. Start: 11-19-2012 End: 11-19-2012 Unspecified general medical examination Tamiko HDZC Work Phone: [employer] Patient encounter status Tamiko HDZC Work Phone: [employer]; [employer]. Procedures Date Procedure Procedure Detail Performing Clinician Start: 09-14-2022 STREP A MOLECULAR (POC) Rosalinda Arce CLAU-C Work Phone: Start: 09-10-2016 End: 09-10-2016 Lab findings surveillance Deb [address], LPN Comment on above: cmp 91 Start: 06-14-2016 End: 06-14-2016 No Known Past Surgical History Tamiko HDZC Work Phone: Start: 01-19-2011 End: 01-19-2011 Microscopic examination of cervical Papanicolaou smear Deb Frank LPN Start: 04-21-2009 End: 04-21-2009 tdap Deb Frank LPN Plan of Treatment Date Care Activity Detail Author Start: 10-01-2024 Patient encounter procedure Medical; EXTENDED RTN - f/u [employer]. Start: 01-Oct-2024 14:20-04:00 BRADEN Leonard Appointment Request [employer]. Start: 10-24-2023 Patient encounter procedure Medical; EXTENDED RTN - rtn [employer]. Start: 24-Oct-2023 08:40-04:00 BRADEN Leonard Appointment Request [employer]. Start: 12-20-2022 Influenza vaccination INFLUENZA (Season Ended) [facility] Start: 08-08-2022 Screening digital breast tomosynthesis bi Mammogram 3D (tomosynthesis), bilateral (48825) Start: 08-Aug-2022 Intent [employer]. Start: 08-08-2022 Assay of thyroid stimulating hormone tsh TSH W/ REFL FREE T4 ([id number]) ([id number]) Start: 08-Aug-2022 11:19-04:00 Request [employer]. Start: 08-08-2022 Lipid panel LIPID PANEL ([id number]) Start: 08-Aug-2022 11:19-04:00 Request [employer]. Start: 08-08-2022 Comprehensive metabolic panel CMP w/ GFR* ([id number]) Start: 08-Aug-2022 11:19-04:00 Request [employer]. Start: 04-21-2022 DEPRESSION ASSESSMENT DEPRESSION ASSESSMENT [facility] Start: 08-13-2021 Screening digital breast tomosynthesis bi Mammogram 3D (tomosynthesis), bilateral ([id number]) Start: 13-Aug-2021 Intent [employer]. Start: 2019 Mammography MAMMOGRAM [facility] Start: 08-16-2014 Patient Education Sinusitis *: sinus infection Indication: SINUSITIS, ACUTE NEC Start: 16-Aug-2014 Instruction Type: Patient Education [employer] Work Phone: Start: 2009 HPV TESTING HPV TESTING [facility] Start: 01-09-2000 PAP TESTING PAP TESTING [facility] Start: 1998 Urine microalbumin profile DTAP,TDAP,TD (1 - Tdap) [facility] Start: 1997 HEPATITIS C SCREENING HEPATITIS C SCREENING [facility] Start: 1997 HIV SCREENING HIV SCREENING [facility] Start: 1979 COVID-19 VACCINE (#1) COVID-19 VACCINE (#1) [facility] Start: 1979 HEPATITIS B (1 of 3 - 3-dose series) HEPATITIS B (1 of 3 - 3-dose series) [facility] Immunizations Immunization Date Immunization Notes Care Provider [employer] 05-04-2013 tetanus toxoid, reduced diphtheria toxoid, and acellular pertussis vaccine, adsorbed Tamiko Leonard PA-C Work Phone: [employer]; [employer] Comment on above: Site: Deltoid (Right )VIS Given: * TDAP, Td (08/27/2012) * Tetanus/Diphtheria/(Pertussis) (Td/Tdap) (03/08/08) * Tetanus/Diptheria/Pertussis (Tdap/Td) 05/14/11 NEGATED: Highlighted row has not occurred! influenza, seasonal, injectable Tamiko Leonard PA-C Work Phone: [employer]; [employer] Payers Date Payer Category Payer Unknown [id number] Social History Date Type Detail Facility Start: 09-14-2022 [facility] Work Phone: Start: 09-14-2022 Tobacco use and exposure Smokeless tobacco non-user [facility] Work Phone: Start: 09-14-2022 Alcohol intake Current non-dr stove polisher of alcohol (finding) [facility] Start: 1980 Sex Assigned At Not on file [facility] Alcohol Use: Alcohol Use: ; None. [employer]; [employer] Caffeine Use [facility]affeine [facility]; [employer] [facility] Marital status: Marital status: ; . [employer] [facility] [employer] [facility] Tobacco Use: Tobacco Use: ; N ever smoker. [employer] [facility] [employer]. [facility] [employer] Work Phone: [employer]; [employer] [facility] Work Phone: History of Present illness Narrative 09-14-2022 CLAU Lawson - 09/14/2022 2:19 PM EDT Note Date & Type Note Facility 09-14-2022 History of Presen t illness Narrative This note was created using [employer]. Subjective Tricia Correa is a 42 year old female. HPI 42-year-old female presents for headache, cough, fever, sore throat, exposure to strep. Patient states she has had a headache, cough for the past 4 to 5 days. She got a fever yesterday. Tmax 100.6 F. She has a sore throat. She was exposed to strep. No vomiting or diarrhea. No other complaints. No past medical history on file. PAST SURGICAL HISTORY Procedure Laterality Date NONE ALLERGIES Patient has no known allergies. MEDICATIONS albuterol HFA (PROAIR HFA) 90 mcg/actuation inhaler Inhale 2 Puffs as instructed every 4 hours as needed for Wheezing/Shortness of Breath. sertraline (ZOLOFT) 25 mg tablet Take 1 tablet by mouth once daily. MULTIVITAMIN ORAL Take by mouth. No family history on file. Social History Tobacco Use Smoking status: Never Smokeless tobacco: Never Substance Use Topics Alcohol use: No Drug use: No Review of Systems Constitutional: Positive for fever. Negative for chills. HENT: Positive for sore throat. Negative for congestion and ear pain. Respiratory: Positive for cough. Negative for shortness of breath. Cardiovascular: Negative for chest pain. Gastrointestinal: Negative for diarrhea and vomiting. Neurological: Positive for headaches. Objective BP 122/72 Pulse 116 Temp 37.6 C (99.7 F) Resp 16 Wt 88.5 kg (195 lb) SpO2 98% BMI 30.54 kg/m Physical Exam Vitals and nursing note reviewed. Constitutional: General: She is not in acute distress. Appearance: Normal appearance. She is not toxic-appearing. HENT: Right Ear: Tympanic membrane and ear canal normal. Left Ear: Tympanic membrane and ear canal normal. Nose: Nose normal. Mouth/Throat: Mouth: Mucous membranes are moist. Pharynx: Uvula midline. Posterior oropharyngeal erythema present. No oropharyngeal exudate. Tonsils: No tonsillar exudate. 1+ on the right. 1+ on the left. Eyes: Conjunctiva/sclera: Conjunctivae normal. Cardiovascular: Rate and Rhythm: Normal rate and regular rhythm. Pulmonary: Effort: Pulmonary effort is normal. Breath sounds: Normal breath sounds. Neurological: Mental Status: She is alert. Assessment and Plan ASSESSMENT/PLAN: 1. URI, acute - ICD9: 465.9, ICD10: J06.9 (primary diagnosis) - Discussed viral etiology and rationale for treatment. - Symptomatic treatment with prn analgesia - Supportive care with fluids and rest -Declines COVID/flu swab 2. Sore throat - ICD9: 462, ICD10: J02.9 -Strep test negative. -Suspect viral. -Recommend OTC lozenges, salt gargles, Tylenol/Motrin - STREP A MOLECULAR (POC) Diagnosis and treatment plan were discussed and questions were answered to the patient's satisfaction. Pt acknowledged understanding of concepts and follow up plan. Specific signs and symptoms that would indicate the need for higher level of care were discussed in detail warranting prompt ER evaluation. CLAU Lawson documented in this encounter [facility] Evaluation note Note Date & Type Note Facility Evaluation note Diagnosis URI, acute- Primary Acute upper respiratory infections of unspecified site Sore throat Acute pharyngitis documented in this encounter [facility] Summary Purpose Family History arthritis-mom,dad,grandparents Status:Active Coronary Artery Disease Status:Active Comments :grandparents Hypertension Status:Active Comments:grandma pancreatic-grandpa Status:Active arthritis-mom,dad,grandparents Status:Active Coronary Artery Disease Status:Active Comments :grandparents Hypertension Status:Active Comments:grandma pancreatic-grandpa Status:Active arthritis-mom,dad,grandparents Status:Active Coronary Artery Disease Status:Active Comments :grandparents Hypertension Status:Active Comments:grandma pancreatic-grandpa Status:Active arthritis-mom,dad,grandparents Status:Active Coronary Artery Disease Status:Active Comments :grandparents Hypertension Status:Active Comments:grandma pancreatic-grandpa Status:Active arthritis-mom,dad,grandparents Status:Active Coronary Artery Disease Status:Active Comments :grandparents Hypertension Status:Active Comments:grandma pancreatic-grandpa Status:Active arthritis-mom,dad,grandparents Status:Active Coronary Artery Disease Status:Active Comments :grandparents Hypertension Status:Active Comments:grandma pancreatic-grandpa Status:Active arthritis-mom,dad,grandparents Status:Active Coronary Artery Disease Status:Active Comments :grandparents Hypertension Status:Active Comments:grandma pancreatic-grandpa Status:Active arthritis-mom,dad,grandparents Status:Active Coronary Artery Disease Status:Active Comments :grandparents Hypertension Status:Active Comments:grandma pancreatic-grandpa Status:Active arthritis-mom,dad,grandparents Status:Active Coronary Artery Disease Status:Active Comments :grandparents Hypertension Status:Active Comments:grandma pancreatic-grandpa Status:Active arthritis-mom,dad,grandparents Status:Active Coronary Artery Disease Status:Active Comments :grandparents Hypertension Status:Active Comments:grandma pancreatic-grandpa Status:Active arthritis-mom,dad,grandparents Status:Active Coronary Artery Disease Status:Active Comments :grandparents Hypertension Status:Active Comments:grandma pancreatic-grandpa Status:Active arthritis-mom,dad,grandparents Status:Active Coronary Artery Disease Status:Active Comments :grandparents Hypertension Status:Active Comments:grandma pancreatic-grandpa Status:Active arthritis-mom,dad,grandparents Status:Active Coronary Artery Disease Status:Active Comments :grandparents Hypertension Status:Active Comments:grandma pancreatic-grandpa Status:Active arthritis-mom,dad,grandparents Status:Active Coronary Artery Disease Status:Active Comments :grandparents Hypertension Status:Active Comments:grandma pancreatic-grandpa Status:Active arthritis-mom,dad,grandparents Status:Active Coronary Artery Disease Status:Active Comments :grandparents Hypertension Status:Active Comments:grandma pancreatic-grandpa Status:Active Advance Directives No Advanced Directives Records FoundNo Advanced Directives Records Found Additional Source Comments INFORMATION SOURCE (unrecogn ized section and content) DATE CREATED AUTHOR 06/01/2018 [facility] DATE CREATED AUTHOR AUTHOR'S ORIN DE LOS SANTOS 06/06/2024 [facility] Source Comments (unrecognize d section and content) In the event this informatio n is protected by the Federal Confidentiality of Alcohol and Drug Abuse Patient Records regulations: The Federal rules restrict any use of the information to criminally investigate or prosecute any alcohol or drug abuse patient.[facility] Reason for Visit (unrecogniz ed section and content) Reason Comments Headache x 5 days, cough x 2 days, fever x today, strep exposure Care Teams (unrecognized sec tion and content) Contracting Manager Relationship Specialty Start Date End Date Tamiko Leonard [address] [place] [address] [place] [address] PCP - General Family Medicine 05/17/18 FOR RECORDS PERTAINING TO PATIENTS WHO ARE OR HAVE BEEN ENROLLED IN A CHEMICAL DEPENDENCY/SUBSTANCEABUSE PROGRAM, SOME INFORMATION MAY BE OMITTED. This clinical summary was aggregated from multiple sources. Caution should be exercised in using it in the provision of clinical care. This summary normalizes information from multiple sources, and as a consequence, information in this document may materially change the coding, format and clinical context of patient data. In addition, data may be omitted in some cases. CLINICAL DECISIONS SHOULD BE BASED ON THE PRIMARY CLINICAL RECORDS. [employer] provides no warranty or guarantee of the accuracy or completeness of information in this document.
[2024-11-28 10:04] LABS: AST(SGOT) 29 U/L (<=31); Alanine Aminotransfer ALT/SGPT 26 U/L (<=34); Albumin, Serum 4.1 g/dL (3.5-5.0); Alkaline Phosphatase 93 U/L (35-104); Anion Gap 13 (5-15); BUN 4 mg/dL (4-19); BUN/Creat Ratio 5.5 RATIO (10-20); Calcium,Total 9.6 mg/dL (7.6-11.0); Carbon Dioxide 23.5 mmol/L (21.0-32.0); Chloride 100 mmol/L (98-108); Estimated Creatinine Clearance 97.70 ml/min (50-250); Globulin 3.3 g/dL (2.2-4.2); Glucose 98 mg/dL (70-99); Potassium 3.3 mmol/L (3.3-5.1)
[2024-11-28 10:52] VITALS: BP 122/63; PULSE 69; RESP 15; O2SAT 100
[2024-11-28 11:42] VITALS: BP 122/63; PULSE 69; RESP 15; TEMP 36.6; O2SAT 100
== END 2024-11-28 11:43 | disposition home or self-care (01) ==
PROVIDERS: Emergency Provider Emergency Medicine; PCP Physician Assistant; Visit Provider Emergency Medicine
DX: A08.4 Viral intestinal infection, unspecified (principal); F41.9 Anxiety disorder, unspecified; Z79.899 Other long term (current) drug therapy
CPT/HCPCS: 80053; 85025; 96360; 96361; 99283; A4216